=== PATIENT | male | born 1955 | race Caucasian/White ===

== ENCOUNTER 2021-09-30 08:59 | Emergency (ER) | payer OTHER, MEDICAID, SELFPAY ==
[2021-09-30] VITALS (16 sets, daily range): BP systolic 127–145; BP diastolic 60–78; PULSE 65–84; RESP 12–26; TEMP 36.9; O2SAT 89–100; BMI 31.4
--- NOTE | 2021-09-30 08:51 | DI.RAD.S_ITS ---
PROCEDURE: XR CHEST 2V INDICATIONS: shortness of breath TECHNIQUE: 2 views of the chest were acquired. COMPARISON: [facility], CR, XR SHOULDER 2+ VIEWS LEFT, 09/21/2020, 14:59. [facility], CR, XR SHOULDER 2+ VIEWS LEFT, 10/19/2020, 14:37. FINDINGS: Exam is somewhat limited given overlying upper arm on the lateral view. Surgical changes and devices: None. Overlying EKG wires. Lungs and pleura: Left basilar opacity with small-moderate pleural effusion. Mediastinum: Mediastinal contours are normal. Left heart border is obscured by opacity. No definite cardiomegaly. 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 Soft tissues appear unremarkable. IMPRESSION: Left basilar opacity small to moderate pleural effusion. This is concerning for pneumonia in the correct clinical setting. Additional etiologies not excluded. Recommend follow-up radiographs after appropriate treatment to ensure resolution. Chronic nonunion proximal left humeral fracture. This appears increased in displacement from prior exam. Dictated by: Javier Urbina D.O. on 09/30/2021 at 8:45 Approved by: Javier Urbina D.O. on 09/30/2021 at 8:49
[2021-09-30 09:10] LABS: COVID19 -Nasal RAPID Negative (Negative)
[2021-09-30 09:19] LABS: Add Manual Diff / Slide Review NO; Basophils Absolute Auto 0 /uL (0-100); Basophils Percent Auto 0.5 % (0-2); Eosinophils Absolute Auto 0 /uL (0-450); Eosinophils Percent Auto 0.3 % (2-4); Hematocrit 41.5 % (41-53); Hemoglobin 13.8 g/dL (13.5-17.5); Lymphocytes Absolute Auto 1100 /uL (1100-4500); Lymphocytes Percent Auto 14.5 % (25-40); Mean Corpuscular HGB Conc 33.2 % (30-36); Mean Corpuscular Hemoglobin 28.5 PG (26-34); Mean Corpuscular Volume 85.8 fL (80-100); Monocytes Absolute Auto 800 /uL (0-900); Monocytes Percent Auto 10.9 % (3-14); Neutrophils Absolute Auto 5400 /uL (1500-7000); Neutrophils Percent Auto 73.8 % (50-75); Platelet Count 145 X10^3/uL (150-400); Red Blood Cell Count 4.84 X10^6/uL (4.5-5.9); Red Cell Distribution Width 14.8 % (11.6-14.8); White Blood Cell Count 7.3 X10^3/uL (4.5-11.0)
[2021-09-30 09:31] LABS: Alanine Aminotransferase 39 IU/L (<50); Albumin 3.6 g/dL (3.5-5.0); Albumin Globulin Ratio 1.2 (1.0-2.8); Alkaline Phosphatase 93 U/L (38-126); Aspartate Aminotransferase 64 IU/L (17-59); BUN Creatinine Ratio 22.9 (6-22); Bilirubin Total 1.3 mg/dL (0.2-1.3); Blood Urea Nitrogen 11 mg/dL (9-20); Calcium 8.4 mg/dL (8.4-10.2); Carbon Dioxide 31 mmol/L (22-32); Estimated Glomerular Filt Rate > 60 mL/min (>60); Globulin 2.9 g/dL (1.7-4.1); Glucose 87 mg/dL (80-110); HEMOLYSIS < 15 (0-50); Lactate (Lactic Acid) 1.3 mmol/L (0.7-2.1); Potassium 4.2 mmol/L (3.4-5.1); Total Protein 6.5 g/dL (6.3-8.2)
[2021-09-30 09:38] LABS: Chloride 75 mmol/L (98-107); Sodium 112 mmol/L (137-145)
--- NOTE | 2021-09-30 10:18 | ED_ITS ---
HPI - SOB/Dyspnea General Chief Complaint: Shortness of Breath/Dyspnea Stated Complaint: sob Time Seen by Provider: 09/30/21 09:00 Source: patient and EMS Mode of arrival: EMS Limitations: no limitations History of Present Illness HPI Narrative: This chronically ill 65-year-old gentleman comes by EMS from home today because of shortness of breath and fatigue, insomnia and vomiting now for many weeks. He says for at least a month he has not been able to sleep more than a few minutes at a time. He says he is unable to move about very well because of breathlessness. He says he smokes still little bit but not very much. He says every time he tries to drink or eat anything he ends up vomiting. He says he harper s not had fever or vomiting. He does feel short of breath. He says he does have abdominal pain diffusely. He says his left arm always hurts. He is not aware of any swelling in his left arm or chest. Patient does report once a week drinking about a six-pack of beer and a 5th of vodka Related Data Home Medications Medication Instructions Recorded Confirmed amitriptyline 25 mg tablet 25 mg PO DAILY 09/30/21 09/30/21 atorvastatin 20 mg tablet 20 mg PO BEDTIME 09/30/21 09/30/21 gabapentin 100 mg capsule 100 mg PO TID 09/30/21 09/30/21 ibuprofen 800 mg tablet 800 mg PO TID PRN Pain (Scale 09/30/21 09/30/21 Score 1-3) lisinopril 20 mg tablet 20 mg PO DAILY 09/30/21 09/30/21 Review of Systems Review of Systems Narrative: Complete review of systems is negative other than as noted above. Patient History Medical History COPD (chronic obstructive pulmonary disease) HLD (hyperlipidemia) HTN (hypertension) Surgical History S/P arterial stent Family History Father Congestive heart failure Mother CVA (cerebral vascular accident) Social History Smoking Status: Current every day smoker alcohol intake: current (occasional) substance use type: marijuana (occasional) Smoking Status: Current every day smoker tobacco type: cigarettes alcohol intake frequency: a few times a week Substance Use Type: marijuana Exam Narrative Exam Narrative: GENERAL: Alert, cooperative and in no distress. He is chronically ill- appearing. He has fairly marked swelling of his left upper extremity as well as his left pectoralis area. There is some mottling of his hands and feet. He has deformity of his proximal left humerus as well. HEAD: Atraumatic. Normocephalic. EYES: Sclera are clear without icterus. Extraocular movements are full. ENT: No rhinorrhea. Oropharynx is moist. Mouth exam is benign. NECK: Supple. Full range of motion. CARDIOVASCULAR: Normal rate and rhythm without murmur gallop or rub. RESPIRATORY: Clear to auscultation. Breath sounds equal bilaterally. Coarse breath sounds throughout. Decreased breath sounds in the right base. GASTROINTESTINAL: Abdomen soft, mild diffuse tenderness, nondistended. EXTREMITIES: No edema, full range of motion. No obvious trauma. Marked edema of the left lower extremity. Left upper extremity is also edematous. BACK: Normal inspection, no CVA tenderness. NEURO: Nonfocal examination, normal speech SKIN: No rash or erythema of visible areas chronic discoloration of the left anterior soriano PSYCH: Normally oriented. Normal range of affect. Appropriate behavior Initial Vital Signs Initial Vital Signs: Vital Signs Temperature 98.4 F 09/30/21 08:43 Pulse Rate 76 09/30/21 08:43 Respiratory Rate 19 09/30/21 08:43 Blood Pressure 138/72 09/30/21 08:43 Pulse Oximetry 100 09/30/21 08:43 Oxygen Delivery Method 09/30/21 08:43 Oxygen Flow Rate 4 09/30/21 08:43 Course Course Course Narrative: Shortly after laboratory data was obtained many hours ago I immediately began infusing saline to try to help alleviate the hyponatremia. We did this gently so as to not exacerbate his obvious congestive failure. We discovered many abnormalities including congestive heart failure, severe hyponatremia and a new lung nodule that looks like a cancer. He also has anasarca and probably significant COPD exacerbation as well. In any case, I consulted with the hospitalist who kindly did a bedside consultation and we have been trying to get this gentleman placed in outside facility with the nephrology team. At this time which is 4:19 p.m., the patient says he would like to go home. I had a lengthy discussion with the patient telling him that he has a very severe acute medical condition that could deteriorate and ultimately result in his or severe disability in the coming hours or days. I also told him that the cancer diagnosis is certainly not proven but requires extensive further workup to decide whether not it is real and what treatments might be available. I explained to him at least 2 or 3 times that he is at extreme risk for if he chooses to go home against medical advice. He reiterates multiple times that he would like to just go home. Orders Ordered: ED Orders 09/30/21 08:40 COVID19 -Nasal RAPID/Pre-Proc Stat 09/30/21 08:51 XR chest 2V Stat EKG-12 Lead Stat Measure peak expiratory flow ONCE RT Consult Eval and Treat Now 09/30/21 09:10 Complete Blood Count AUTO DIFF Stat Comprehensive Metabolic Panel Stat Ethanol (ETOH) Stat Lactate (Lactic Acid) Stat Lipase Stat Prothrombin Time INR Stat TSH [Thyroid Stimulating Hormone] Stat Troponin I Stat 09/30/21 10:35 CT chest abd pel w con Stat US periph venous low extrem lt Stat US periph venous up extrem lt Stat 09/30/21 14:07 Sodium Urine Random Stat UA dip and micro [Urinalysis and Microscopic] Stat Discontinued Medications Sodium Chloride (Normal Saline 0.9%) 1,000 mls @ 1,000 mls/hr IV BOLUS ONE Stop: 09/30/21 11:39 Last Infusion: 09/30/21 12:14 Dose: 0 mls/hr Documented By: MARIA EUGENIA Admin: 09/30/21 11:12 Dose: 1,000 mls/hr Documented By: MARIA EUGENIA Consultations Consultation #1: Dr. Woo consults Vital Signs Vital signs: Vital Signs - 8 hr 09/30/21 08:43 09/30/21 11:09 09/30/21 11:30 Temperature 98.4 F Pulse Rate 76 76 74 Respiratory Rate 19 12 20 Blood Pressure 138/72 Pulse Oximetry 100 98 99 Oxygen Delivery Method Nasal Cannula Oxygen Flow Rate 4 09/30/21 12:00 09/30/21 12:30 09/30/21 13:00 Temperature Pulse Rate 66 65 80 Respiratory Rate 20 15 22 Blood Pressure Pulse Oximetry 97 97 94 Oxygen Delivery Method Oxygen Flow Rate 2 09/30/21 13:30 09/30/21 14:00 09/30/21 14:30 Temperature Pulse Rate 79 80 77 Respiratory Rate 19 19 20 Blood Pressure Pulse Oximetry 99 92 93 Oxygen Delivery Method Oxygen Flow Rate 2 2 09/30/21 14:46 09/30/21 14:46 Temperature Pulse Rate 77 Respiratory Rate 16 Blood Pressure 127/60 Pulse Oximetry 93 Oxygen Delivery Method Oxygen Flow Rate MDM - SOB/Dyspnea Lab Data Result diagrams: 09/30/21 09:10 09/30/21 09:10 Labs: Lab Results 09/30/21 09/30/21 09/30/21 Range/Units 08:40 09:10 09:10 WBC 7.3 (4.5-11.0) X10^3/uL RBC 4.84 (4.5-5.9) X10^6/uL Hgb 13.8 (13.5-17.5) g/dL Hct 41.5 (41-53) % MCV 85.8 (80-100) fL MCH 28.5 (26-34) PG MCHC 33.2 (30-36) % RDW 14.8 (11.6-14.8) % Plt Count 145 L (150-400) X10^3/uL Neut % (Auto) 73.8 (50-75) % Lymph % (Auto) 14.5 L (25-40) % [place] % (Auto) 10.9 (3-14) % Eos % (Auto) 0.3 L (2-4) % Baso % (Auto) 0.5 (0-2) % Neut # (Auto) 5400 (7481-7523) /uL Lymph # (Auto) 1100 (4319-2297) /uL [place] # (Auto) 800 (0-900) /uL Eos # (Auto) 0 (0-450) /uL Baso # (Auto) 0 (0-100) /uL PT (10.1-12.7) SECONDS INR (0.9-1.3) Sodium 112 L* (137-145) mmol/L Potassium 4.2 (3.4-5.1) mmol/L Chloride 75 L* (98-107) mmol/L Carbon Dioxide 31 (22-32) mmol/L BUN 11 (9-20) mg/dL Creatinine 0.48 L (0.66-1.25) mg/dL Estimated GFR > 60 (>60) mL/min BUN/Creatinine Ratio 22.9 H (6-22) Glucose 87 (80-110) mg/dL Lactate (0.7-2.1) mmol/L Calcium 8.4 (8.4-10.2) mg/dL Total Bilirubin 1.3 (0.2-1.3) mg/dL AST 64 H (17-59) IU/L ALT 39 (<50) IU/L Alkaline Phosphatase 93 (38-126) U/L Troponin I (0.01-0.034) ng/mL Total Protein 6.5 (6.3-8.2) g/dL Albumin 3.6 (3.5-5.0) g/dL Globulin 2.9 (1.7-4.1) g/dL Albumin/Globulin Ratio 1.2 (1.0-2.8) Lipase (23-300) U/L TSH (0.47-4.68) uIU/mL Urine Color Urine Appearance Urine pH (4.5-8.0) Ur Specific [place] (1.000-1.035) Urine Protein (Negative) Urine Glucose (UA) (Negative) g/dL Urine Ketones (NEGATIVE) Urine Occult Blood (Negative) Urine Nitrate (Negative) Urine Bilirubin (NEGATIVE) Urine Urobilinogen (0.2) E.U./dL Ur Leukocyte Esterase (NEGATIVE) Urine RBC (0-5/HPF) Urine WBC (0-5/HPF) Ur Squamous Epith Cells (0-5/HPF) Urine Bacteria (None) Ur Culture Indicated? Ur Random Sodium (30-90) mmol/L Ethyl Alcohol ( - 10) mg/dL SARS-CoV-2 (PCR) Negative (Negative) 09/30/21 09/30/21 09/30/21 Range/Units 09:10 09:10 09:10 WBC (4.5-11.0) X10^3/uL RBC (4.5-5.9) X10^6/uL Hgb (13.5-17.5) g/dL Hct (41-53) % MCV (80-100) fL MCH (26-34) PG MCHC (30-36) % RDW (11.6-14.8) % Plt Count (150-400) X10^3/uL Neut % (Auto) (50-75) % Lymph % (Auto) (25-40) % [place] % (Auto) (3-14) % Eos % (Auto) (2-4) % Baso % (Auto) (0-2) % Neut # (Auto) (5930-7236) /uL Lymph # (Auto) (6925-9654) /uL [place] # (Auto) (0-900) /uL Eos # (Auto) (0-450) /uL Baso # (Auto) (0-100) /uL PT 15.1 H (10.1-12.7) SECONDS INR 1.4 H (0.9-1.3) Sodium (137-145) mmol/L Potassium (3.4-5.1) mmol/L Chloride (98-107) mmol/L Carbon Dioxide (22-32) mmol/L BUN (9-20) mg/dL Creatinine (0.66-1.25) mg/dL Estimated GFR (>60) mL/min BUN/Creatinine Ratio (6-22) Glucose (80-110) mg/dL Lactate 1.3 (0.7-2.1) mmol/L Calcium (8.4-10.2) mg/dL Total Bilirubin (0.2-1.3) mg/dL AST (17-59) IU/L ALT (<50) IU/L Alkaline Phosphatase (38-126) U/L Troponin I 0.022 (0.01-0.034) ng/mL Total Protein (6.3-8.2) g/dL Albumin (3.5-5.0) g/dL Globulin (1.7-4.1) g/dL Albumin/Globulin Ratio (1.0-2.8) Lipase 68 (23-300) U/L TSH (0.47-4.68) uIU/mL Urine Color Urine Appearance Urine pH (4.5-8.0) Ur Specific [place] (1.000-1.035) Urine Protein (Negative) Urine Glucose (UA) (Negative) g/dL Urine Ketones (NEGATIVE) Urine Occult Blood (Negative) Urine Nitrate (Negative) Urine Bilirubin (NEGATIVE) Urine Urobilinogen (0.2) E.U./dL Ur Leukocyte Esterase (NEGATIVE) Urine RBC (0-5/HPF) Urine WBC (0-5/HPF) Ur Squamous Epith Cells (0-5/HPF) Urine Bacteria (None) Ur Culture Indicated? Ur Random Sodium (30-90) mmol/L Ethyl Alcohol < 10 ( - 10) mg/dL SARS-CoV-2 (PCR) (Negative) 09/30/21 09/30/21 09/30/21 Range/Units 09:10 14:07 14:07 WBC (4.5-11.0) X10^3/uL RBC (4.5-5.9) X10^6/uL Hgb (13.5-17.5) g/dL Hct (41-53) % MCV (80-100) fL MCH (26-34) PG MCHC (30-36) % RDW (11.6-14.8) % Plt Count (150-400) X10^3/uL Neut % (Auto) (50-75) % Lymph % (Auto) (25-40) % [place] % (Auto) (3-14) % Eos % (Auto) (2-4) % Baso % (Auto) (0-2) % Neut # (Auto) (2519-0187) /uL Lymph # (Auto) (5637-3988) /uL [place] # (Auto) (0-900) /uL Eos # (Auto) (0-450) /uL Baso # (Auto) (0-100) /uL PT (10.1-12.7) SECONDS INR (0.9-1.3) Sodium (137-145) mmol/L Potassium (3.4-5.1) mmol/L Chloride (98-107) mmol/L Carbon Dioxide (22-32) mmol/L BUN (9-20) mg/dL Creatinine (0.66-1.25) mg/dL Estimated GFR (>60) mL/min BUN/Creatinine Ratio (6-22) Glucose (80-110) mg/dL Lactate (0.7-2.1) mmol/L Calcium (8.4-10.2) mg/dL Total Bilirubin (0.2-1.3) mg/dL AST (17-59) IU/L ALT (<50) IU/L Alkaline Phosphatase (38-126) U/L Troponin I (0.01-0.034) ng/mL Total Protein (6.3-8.2) g/dL Albumin (3.5-5.0) g/dL Globulin (1.7-4.1) g/dL Albumin/Globulin Ratio (1.0-2.8) Lipase (23-300) U/L TSH 1.76 (0.47-4.68) uIU/mL Urine Color Yellow Urine Appearance Clear Urine pH 6.5 (4.5-8.0) Ur Specific [place] 1.020 (1.000-1.035) Urine Protein 2+ H (Negative) Urine Glucose (UA) Trace H (Negative) g/dL Urine Ketones 1+ H (NEGATIVE) Urine Occult Blood Trace-lysed (Negative) Urine Nitrate Negative (Negative) Urine Bilirubin Negative (NEGATIVE) Urine Urobilinogen 1.0 (0.2) E.U./dL Ur Leukocyte Esterase Negative (NEGATIVE) Urine RBC 0-1/hpf (0-5/HPF) Urine WBC 1-5/hpf (0-5/HPF) Ur Squamous Epith Cells 0-1 /hpf (0-5/HPF) Urine Bacteria None seen (None) Ur Culture Indicated? Cult not indicated Ur Random Sodium 7 L (30-90) mmol/L Ethyl Alcohol ( - 10) mg/dL SARS-CoV-2 (PCR) (Negative) Imaging Data Chest x-ray: Radiologist's Impression: IMPRESSION:? ? Left basilar opacity small to moderate pleural effusion.? This is concerning for pneumonia in the correct clinical setting.? Additional etiologies not excluded.? Recommend follow-up radiographs after appropriate treatment to ensure resolution. ? Chronic nonunion proximal left humeral fracture.? This appears increased in displacement from prior exam. ? ? Dictated by: Javier Urbina D.O. on 09/30/2021 at 8:45 ? ? Approved by: Javier Urbina D.O. on 09/30/2021 at 8:49 ? US - DVT: Radiologist's Impression: IMPRESSION:? ? No evidence of left lower extremity deep venous thrombosis. ? ? Dictated by: Javier Urbina D.O. on 09/30/2021 at 11:16 ? ? Approved by: Javier Urbina D.O. on 09/30/2021 at 11:17 ? CT scan - abdomen/pelvis: Radiologist's Impression: PROCEDURE:? CT CHEST ABD PEL W CON ? INDICATIONS:? Dyspnea, pleural effusion, abdominal pain, hyponatremia ? TECHNIQUE:? After the administration of intravenous contrast, 5 mm thick sections acquired from the lung apices to the symphysis.? 5 mm coronal and sagittal reformats were performed, with additional 7 mm MIP reformats through the lungs.? For radiation dose reduction, the following was used:? automated exposure control, adjustment of mA and/or kV according to patient size.? ? COMPARISON:? [facility], CR, XR SHOULDER 2+ VIEWS LEFT, 10/19/2020, 14:37.? [facility], CR, XR CHEST 2V, 09/30/2021, 9:02. ? FINDINGS:? Image quality:? Excellent.? ? CHEST:? Lungs and pleura:? Central tracheobronchial tree is patent.? Moderate emphysematous changes noted throughout the lungs.? There is a small left-sided pleural effusion with adjacent atelectasis.? Trace right pleural effusion.? More focal atelectasis noted within the lingula and left lung base.? There is a spiculated nodule noted within the anterolateral aspect of the left upper lobe measuring 1.7 x 1.1 by 1.2 centim eters (series 3, image 91) additional nodule just superiorly measuring 7 x 6 millimeters.? Ground-glass nodules adjacent to the minor fissure in the right middle lobe measuring 1.3 centimeters (3; 216 an additional nodule which may represent focal atelectasis measuring 1.3 x 0.8 centimeters (3; 225). ? Mediastinum:? Cardiomegaly with marked multi-vessel coronary vascular calcifications.? No pericardial effusion.? No pericardial effusion.? No mediastinal or hilar adenopathy by size criteria.? Enlargement of the ascending aorta measuring 4.6 centimeters at the level of the right pulmonary artery.? Esophagus is normal in caliber.? No hiatal hernia.? ? Chest wall:? No axillary or supraclavicular adenopathy by size criteria.? Thyroid gland is unremarkable.? ? ? ABDOMEN:? Solid organs:? Hypodensity within liver adjacent to the false form ligament measuring 2.5 x 1.7 centimeters (series 2, image 70).? Gallstone noted within the gallbladder neck.? No wall thickening or surrounding inflammation to suggest acute cholecystitis.? Biliary system is non dilated.? Pancreas enhances normally.? Spleen is normal in size and enhancement.? Right adrenal nodule measuring 1.5 centimeters and 15.9 Hounsfield units.? Kidneys demonstrate symmetric nephrograms.? There are vascular calcifications.? No hydronephrosis.? Ureters appear normal in course and caliber. ? Peritoneum and bowel:? Stomach and small bowel are unremarkable without evidence of obstruction.? There is diffuse diverticulosis without wall thickening to suggest acute diverticulitis.? Mild wall thickening versus pseudo wall thickening of the cecum and proximal ascending colon given non dilation.? The appendix is normal.? There is mild amount of ascites.? No pneumoperitoneum. ? Nodes and vessels:? No retroperitoneal or mesenteric adenopathy by size criteria.? Inferior vena cava is unremarkable.? There is diffuse calcified and noncalcified atherosclerosis of the aorta and branch vessels.? There is focal dilation of the infrarenal abdominal aorta measuring up to 2.8 centimeters.? There is dilation of the proximal left common iliac artery measuring 2.3 centimeters.? 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 Left external iliac stent is noted.? Diffuse calcifications noted throughout the proximal femoral artery on the right without definite internal flow.? 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 ? Miscellaneous:? No ventral hernias.? ? ? PELVIS:? Genitourinary:? Bladder wall thickness is normal.? ? Miscellaneous:? Bilateral fat containing inguinal hernias.? No adenopathy. ? Bones:? No suspicious bony lesions.? No vertebral body compression fractures.? Diffuse degenerative changes noted throughout the shoulders, spine, and hips.? Displaced fracture of the left proximal humerus with increased displacement from comparison radiographs. ? IMPRESSION:? ? Overall findings most consistent with heart failure given cardiomegaly, extensive coronary vascular calcifications, pleural effusions, and anasarca. ? ? Emphysematous findings with spiculated left lung nodule concerning for malignancy measuring 1.7 x 1.1 x 1.2 centimeters.? Recommend tissue sampling versus PET-CT for further evaluation.? Additional adjacent 7 millimeter nodule and additional ground-glass nodules within the right lung.? ? Hypodensity within the liver adjacent to the false form ligament measuring 2.5 x 1.7 centimeters.? Although this may represent focal fat given of additional findings, metastatic disease or other liver lesion not excluded.? Recommend dedicated liver MRI for further evaluation. ? Right adrenal indeterminate nodule measuring 1.5 centimeters.? Recommend attention on comparison liver MRI.? ? 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 ? Diffuse atherosclerosis with near complete occlusion of the right common iliac extending into the external and internal iliac arteries along with diffuse dense calcifications of the proximal right femoral artery without definite internal flow within the limits of this non dedicated study. ? Diffuse soft tissue anasarca with more focal skin thickening and edema noted within the left chest wall and flank which may represent a soft tissue infection.? Recommend clinical correlation. ? Cholelithiasis and diverticulosis.? ? ? Additional findings as above. ? Findings discussed with the ordering provider Dr. Malik Villarreal by Dr. Javier houston at approximately 1040 hours [place] Standard time on 09/30/2021.? ? Dictated by: Javier Urbina D.O. on 09/30/2021 at 10:23 ? ? Approved by: Javier Urbina D.O. on 09/30/2021 at 10:46 ? ECG Data Interpretation: ECG obtained at 9:17 a.m. on September 30 shows a ventricular rate of 66 and I believe he his atrial flutter. His QTC is 450. There is not appear to be any acute ST or T-wave changes. There is at least 2 premature ventricular contractions. [facility] Narrative Medical decision making narrative: Chronically ill 65-year-old gentleman arrives with symptoms lasting a month including repeated vomiting, shortness of breath, nausea and general weakness. Workup reveals multiple findings including anasarca, suspicious left upper lobe lung mass, findings consistent with congestive heart failure and severe COPD. Will admit for hyponatremia and anasarca and further workup. No evidence of DVT in the left upper or lower extremities on ultrasound Critical Care Time Critical Care Time Attestation: At least 45 minutes of critical care time spent with this patient. Time is spent evaluating the patient in taking history as well as ordering and interpre ting lab and x-ray results. I spoke with consultants about this patient as well. Ultimately the patient decided to leave Against Medical Advice which they think is extremely high risk and did take a lengthy initial discussion with him regarding his critical electrolyte disturbance and circulatory failure. Discharge Plan Departure Patient Disposition: Left Against Medical Advice Clinical Impression: Congestive heart failure, Acute hyponatremia, COPD (chronic obstructive pulmonary disease), Anasarca, Lung nodule Prescriptions: No Action atorvastatin 20 mg tablet 20 mg PO BEDTIME ibuprofen 800 mg tablet 800 mg PO TID PRN (Reason: Pain (Scale Score 1-3)) lisinopril 20 mg tablet 20 mg PO DAILY amitriptyline 25 mg tablet 25 mg PO DAILY gabapentin 100 mg capsule 100 mg PO TID Referrals: Brando Francis MD [Primary Care Provider] - Stand Alone Forms: Against Medical Advice
--- NOTE | 2021-09-30 10:35 | DI.CT.S_ITS ---
PROCEDURE: CT CHEST ABD PEL W CON INDICATIONS: Dyspnea, pleural effusion, abdominal pain, hyponatremia TECHNIQUE: After the administration of intravenous contrast, 5 mm thick sections acquired from the lung apices to the symphysis. 5 mm coronal and sagittal reformats were performed, with additional 7 mm MIP reformats through the lungs. For radiation dose reduction, the following was used: automated exposure control, adjustment of mA and/or kV according to patient size. COMPARISON: [facility], CR, XR SHOULDER 2+ VIEWS LEFT, 10/19/2020, 14:37. [facility], CR, XR CHEST 2V, 09/30/2021, 9:02. FINDINGS: Image quality: Excellent. CHEST: Lungs and pleura: Central tracheobronchial tree is patent. Moderate emphysematous changes noted throughout the lungs. There is a small left-sided pleural effusion with adjacent atelectasis. Trace right pleural effusion. More focal atelectasis noted within the lingula and left lung base. There is a spiculated nodule noted within the anterolateral aspect of the left upper lobe measuring 1.7 x 1.1 by 1.2 centimeters (series 3, image 91) additional nodule just superiorly measuring 7 x 6 millimeters. Ground-glass nodules adjacent to the minor fissure in the right middle lobe measuring 1.3 centimeters (3; 216 an additional nodule which may represent focal atelectasis measuring 1.3 x 0.8 centimeters (3; 225). Mediastinum: Cardiomegaly with marked multi-vessel coronary vascular calcifications. No pericardial effusion. No pericardial effusion. No mediastinal or hilar adenopathy by size criteria. Enlargement of the ascending aorta measuring 4.6 centimeters at the level of the right pulmonary artery. Esophagus is normal in caliber. No hiatal hernia. Chest wall: No axillary or supraclavicular adenopathy by size criteria. Thyroid gland is unremarkable. ABDOMEN: Solid organs: Hypodensity within liver adjacent to the false form ligament measuring 2.5 x 1.7 centimeters (series 2, image 70). Gallstone noted within the gallbladder neck. No wall thickening or surrounding inflammation to suggest acute cholecystitis. Biliary system is non dilated. Pancreas enhances normally. Spleen is normal in size and enhancement. Right adrenal nodule measuring 1.5 centimeters and 15.9 Hounsfield units. Kidneys demonstrate symmetric nephrograms. There are vascular calcifications. No hydronephrosis. Ureters appear normal in course and caliber. Peritoneum and bowel: Stomach and small bowel are unremarkable without evidence of obstruction. There is diffuse diverticulosis without wall thickening to suggest acute diverticulitis. Mild wall thickening versus pseudo wall thickening of the cecum and proximal ascending colon given non dilation. The appendix is normal. There is mild amount of ascites. No pneumoperitoneum. Nodes and vessels: No retroperitoneal or mesenteric adenopathy by size criteria. Inferior vena cava is unremarkable. There is diffuse calcified and noncalcified atherosclerosis of the aorta and branch vessels. There is focal dilation of the infrarenal abdominal aorta measuring up to 2.8 centimeters. There is dilation of the proximal left common iliac artery measuring 2.3 centimeters. 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 Left external iliac stent is noted. Diffuse calcifications noted throughout the proximal femoral artery on the right without definite internal flow. 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 Miscellaneous: No ventral hernias. PELVIS: Genitourinary: Bladder wall thickness is normal. Miscellaneous: Bilateral fat containing inguinal hernias. No adenopathy. Bones: No suspicious bony lesions. No vertebral body compression fractures. Diffuse degenerative changes noted throughout the shoulders, spine, and hips. Displaced fracture of the left proximal humerus with increased displacement from comparison radiographs. IMPRESSION: Overall findings most consistent with heart failure given cardiomegaly, extensive coronary vascular calcifications, pleural effusions, and anasarca. Emphysematous findings with spiculated left lung nodule concerning for malignancy measuring 1.7 x 1.1 x 1.2 centimeters. Recommend tissue sampling versus PET-CT for further evaluation. Additional adjacent 7 millimeter nodule and additional ground-glass nodules within the right lung. Hypodensity within the liver adjacent to the false form ligament measuring 2.5 x 1.7 centimeters. Although this may represent focal fat given of additional findings, metastatic disease or other liver lesion not excluded. Recommend dedicated liver MRI for further evaluation. Right adrenal indeterminate nodule measuring 1.5 centimeters. Recommend attention on comparison liver MRI. Multiple aneurysmal dilation is a of the aorta. 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 Diffuse atherosclerosis with near complete occlusion of the right common iliac extending into the external and internal iliac arteries along with diffuse dense calcifications of the proximal right femoral artery without definite internal flow within the limits of this non dedicated study. Diffuse soft tissue anasarca with more focal skin thickening and edema noted within the left chest wall and flank which may represent a soft tissue infection. Recommend clinical correlation. Cholelithiasis and diverticulosis. Additional findings as above. Findings discussed with the ordering provider Dr. Malik Villarreal by Dr. Javier Urbina at approximately 1040 hours [place] Standard time on 09/30/2021. Dictated by: Javier Urbina D.O. on 09/30/2021 at 10:23 Approved by: Javier Urbina D.O. on 09/30/2021 at 10:46
--- NOTE | 2021-09-30 10:35 | DI.US.S_ITS ---
PROCEDURE: US PERIPH VENOUS LOW EXTREM LT INDICATIONS: Marked edema rule out DVT TECHNIQUE: Real-time imaging, as well as color and pulse Doppler interrogation, were performed of the lower extremity deep veins from the inguinal ligament to the popliteal fossa. COMPARISON: None. FINDINGS: The common femoral, femoral and popliteal veins are normally compressible, and free of intraluminal thrombus. Color and pulse Doppler demonstrate normal phasic intraluminal flow. There is normal augmentation response to distal compression maneuver. Fluid collection within the popliteal fossa likely representing a small Barger's cyst measuring 2.6 x 1.4 x 0.3 centimeters. Mild soft tissue edema noted within the leg. IMPRESSION: No evidence of left lower extremity deep venous thrombosis. Dictated by: Javier Urbina D.O. on 09/30/2021 at 11:16 Approved by: Javier Urbina D.O. on 09/30/2021 at 11:17
--- NOTE | 2021-09-30 10:35 | DI.US.S_ITS ---
PROCEDURE: US PERIPH VENOUS UP EXTREM LT INDICATIONS: Marked edema, rule out DVT TECHNIQUE: Real-time imaging, as well as color and pulse Doppler interrogation, was performed of the left upper extremity deep veins from the inferior neck to the antecubital fossa. COMPARISON: None. FINDINGS: The internal jugular vein, visualized portions of the subclavian vein, axillary, and brachial veins are free of intraluminal thrombus. Where physically possible, the veins are normally compressible. Color and pulse Doppler demonstrate normal intraluminal flow, with expected phasicity and pulsatility. Additional scanning of the cephalic and basilic veins of the superficial system demonstrate normal compressibility, without thrombus. IMPRESSION: No evidence of left upper extremity deep venous thrombosis. Dictated by: Javier Urbina D.O. on 09/30/2021 at 11:18 Approved by: Javier Urbina D.O. on 09/30/2021 at 11:19
[2021-09-30 10:50] LABS: INR 1.4 (0.9-1.3); Prothrombin Time 15.1 SECONDS (10.1-12.7)
[2021-09-30 11:07] LABS: Ethanol (ETOH) < 10 mg/dL; Lipase 68 U/L (23-300)
[2021-09-30] MEDS: SODIUM CHLORIDE 0.9% 1,000 ML 1000 ML IV (11:12)
[2021-09-30 11:20] LABS: Troponin I 0.022 ng/mL (0.01-0.034)
[2021-09-30 11:39] LABS: Thyroid Stimulating Hormone 1.76 uIU/mL (0.47-4.68)
--- NOTE | 2021-09-30 14:04 | P.CONS_ITS ---
History of Present Illness Consult details Date Patient Seen: 09/30/21 Time Patient Seen: 14:04 Chief complaint: sob Reason for consult: hyponatremia Requesting provider: Malik Gomez Narrative: This is a 65 year old male with PMH of COPD, HTN, HLD, PAD w/ prior leg arterial ulcers, unknown progressive neuromuscular disorder per patient, who presented to the emergency room today with months to years of generalized malaise, shortness of breath, and diffuse joint pains. He states this is been worsening over quite some time, with and ability to walk without shortness of breath for the past month or 2, but was progressive prior to that. He has also had a poor appetite over the past couple of months but he does not know if he has had any weight gain or weight loss. He has a difficult time lying flat. Patient follows with Dr. Willard, in [place], whom the patient has seen as was told to stop smoking previously. He last saw his PCP about 4 months ago. He denies any worsened lower extremity edema recently, though this has been chronic for some time. He admits to seizure activity at home, multiple times over the past week, but did not seek medical attention. He complains of diffuse joint pains and mu scle aches. He complains frequent small voiding and a difficult time urinating but no dysuria. He denies any fevers or chills. In the emergency room, the patient was put on 4 L of oxygen initially but was never hypoxic. The remainder of his vital signs were unremarkable, and his GCS is 15. During my interview the patient was consistently in the low 90s on room air and appeared comfortable. Initial laboratory evaluation fairly unremarkable CBC with mild cytopenia with a platelet count of 145. Chemistries were notable for a sodium of 112, chloride of 75, creatinine of 0.48. AST was slightly elevated at 64, troponin was within normal limits at 0.022, and TSH was within normal limits at 1.76. Urinalysis and urine sodium level are pending. Alcohol level was undetectable. COVID-19 testing was negative. Chest x-ray shows cardiomegaly with a possible left basal infiltrate and a small to moderate pleural effusion. CT of his chest, abdomen, and pelvis was performed which showed multiple findings including emphysema with a spiculated left lung nodule with an adjacent nodule and ground glass nodules within the right lung. There is also a hypodensity in the liver, nodule, the multiple aneurysmal dilatations of the aorta, and anasarca is noted as well. He further had cholelithiasis and diverticulosis, with a stone in the gallbladder neck reported but no findings consistent with cholecystitis. The hospitalist service here was asked to evaluate for possible admission, however given this patient's current medical complexity he would benefit from a transfer to a center with additional specialty assistance including Cardiology, possibly pulmonology, and definitely Nephrology. Meds Home Medications and Allergies Home Medications Medication Instructions Recorded Confirmed Type amitriptyline 25 mg tablet 25 mg PO DAILY 09/30/21 09/30/21 History atorvastatin 20 mg tablet 20 mg PO BEDTIME 09/30/21 09/30/21 History gabapentin 100 mg capsule 100 mg PO TID 09/30/21 09/30/21 History ibuprofen 800 mg tablet 800 mg PO TID PRN Pain (Scale 09/30/21 09/30/21 History Score 1-3) lisinopril 20 mg tablet 20 mg PO DAILY 09/30/21 09/30/21 History Review of Systems Review of Systems Narrative: All other systems reviewed with the patient and are negative unless otherwise stated. Exam Vital Signs (past 8 hours): - 09/30/21 08:43 09/30/21 11:09 09/30/21 11:30 Temperature 98.4 F Pulse Rate 76 76 74 Respiratory Rate 19 12 20 Blood Pressure 138/72 Pulse Oximetry 100 98 99 Oxygen Delivery Method Nasal Cannula Oxygen Flow Rate 4 09/30/21 12:00 09/30/21 12:30 Temperature Pulse Rate 66 65 Respiratory Rate 20 15 Blood Pressure Pulse Oximetry 97 97 Oxygen Delivery Method Oxygen Flow Rate Oxygen Delivery Method Nasal Cannula Oxygen Flow Rate 4 Narrative Exam Narrative: General:? Patient is an ill-appearing male, but alert and oriented in no acute distress, he does appear quite fatigued and short of breath with only a few word sentences. HEENT:? Normocephalic, atraumatic, extraocular muscles intact, oral pharynx is clear and mucous membranes are moist. Neck: supple and symmetric, trachea is midline, no cervical adenopathy. Negative for JVD Chest:? Normal AP diameter and contour without kyphoscoliosis, no tachypnea, equal chest rise bilaterally. Lungs:?decreased breath sounds LLL, no wheezing, possible crackles LLL. Cardio:?RRR no m/r/g. Abdomen: S NT ND. Musculoskeletal:? Muscle strength and tone are equal within normal limits, no deformity. Extremities: bilateral upper and lower extremity edema, LLE slightly greater than RLE which is greater than his upper extremities. Skin:? Pale,? Warm to touch,dry and intact without rashes. There are chronic skin changes from prior reported leg wounds in his LLE. Neuro:? Alert and orientated x3, no gross deficits noted of cranial nerves. Psych:? Patient has a well-kept appearance, appropriate affect Objective ECG Impression: undetermined regular rhythm, suspect sinus but difficult to tell with artifact. 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 Labs Result Diagrams: 09/30/21 09:10 09/30/21 09:10 Labs: Laboratory Results - last 24 hr 09/30/21 09/30/21 09/30/21 08:40 09:10 09:10 WBC 7.3 RBC 4.84 Hgb 13.8 Hct 41.5 MCV 85.8 MCH 28.5 MCHC 33.2 RDW 14.8 Plt Count 145 L Neut % (Auto) 73.8 Lymph % (Auto) 14.5 L [place] % (Auto) 10.9 Eos % (Auto) 0.3 L Baso % (Auto) 0.5 Neut # (Auto) 5400 Lymph # (Auto) 1100 [place] # (Auto) 800 Eos # (Auto) 0 Baso # (Auto) 0 PT INR Sodium 112 L* Potassium 4.2 Chloride 75 L* Carbon Dioxide 31 BUN 11 Creatinine 0.48 L Estimated GFR > 60 BUN/Creatinine Ratio 22.9 H Glucose 87 Lactate Calcium 8.4 Total Bilirubin 1.3 AST 64 H ALT 39 Alkaline Phosphatase 93 Troponin I Total Protein 6.5 Albumin 3.6 Globulin 2.9 Albumin/Globulin Ratio 1.2 Lipase TSH Ethyl Alcohol SARS-CoV-2 (PCR) Negative 09/30/21 09/30/21 09/30/21 09:10 09:10 09:10 WBC RBC Hgb Hct MCV MCH MCHC RDW Plt Count Neut % (Auto) Lymph % (Auto) [place] % (Auto) Eos % (Auto) Baso % (Auto) Neut # (Auto) Lymph # (Auto) [place] # (Auto) Eos # (Auto) Baso # (Auto) PT 15.1 H INR 1.4 H Sodium Potassium Chloride Carbon Dioxide BUN Creatinine Estimated GFR BUN/Creatinine Ratio Glucose Lactate 1.3 Calcium Total Bilirubin AST ALT Alkaline Phosphatase Troponin I 0.022 Total Protein Albumin Globulin Albumin/Globulin Ratio Lipase 68 TSH Ethyl Alcohol < 10 SARS-CoV-2 (PCR) 09/30/21 09:10 WBC RBC Hgb Hct MCV MCH MCHC RDW Plt Count Neut % (Auto) Lymph % (Auto) [place] % (Auto) Eos % (Auto) Baso % (Auto) Neut # (Auto) Lymph # (Auto) [place] # (Auto) Eos # (Auto) Baso # (Auto) PT INR Sodium Potassium Chloride Carbon Dioxide BUN Creatinine Estimated GFR BUN/Creatinine Ratio Glucose Lactate Calcium Total Bilirubin AST ALT Alkaline Phosphatase Troponin I Total Protein Albumin Globulin Albumin/Globulin Ratio Lipase TSH 1.76 Ethyl Alcohol SARS-CoV-2 (PCR) [facility] Medical History COPD (chronic obstructive pulmonary disease) HLD (hyperlipidemia) HTN (hypertension) Surgical History S/P arterial stent Family History Father Congestive heart failure Mother CVA (cerebral vascular accident) Tobacco & Substance Use Smoking Status: Current every day smoker alcohol intake: current (occasional) substance use type: marijuana (occasional) Assessment & Plan Assessment & Plan narrative: 1. Severe hyponatremia - given likely chronic nature with recent seizure activity, and complex volume status (hypovolemic with low urine sodium, possibly SIADH component, and also on exam appears volume overloaded from probable heart failure) I recommend transfer to a center with multi-specialty assistance including cardiology and nephrology consultations to assist with management of this patient. -his urine sodium is low, continued IV fluids may result in pulmonary congestion and further respiratory failure, needing close monitoring. At this time recommend NS infusion at 75 cc per hour. Will need to adjust based on response with his sodium. - seizure precautions, CT / MRI recommended as noted below. - he needs at least q4 hour BMP, if not more frequent lab draws to avoid too rapid of a correction. Goal Na will be 120 at 24 hours. - he is very likely to also have an SIADH component to this hyponatremia given spiculated lung mass. - Urinalysis slightly concentrated with spec. gravity of 1.020, 2+ protein, trace glucose, 0-1 RBC, 1-5 WBC, no bacteria, not reflexed for culture. - would recommend bladder scan to rule out urinary obstruction which could further complicate given his BPH symptoms, though CT without hydronephrosis. 2. Suspected heart failure - given pleural effusion and chest xray appearance, likely has a congestive heart failure which would be a new diagnosis. - recommend pro-BNP to further evaluate, will need TTE as well. - would hold on diuresis at this time, but fluids to be continued with caution. 3. Spiculated lung mass - suspect malignancy given his smoking history. There are also multiple nodules, unclear if these represent metastasis at this time. - further inpatient or outpatient evaluation to be determined at outside facility - given reported seizure, may be related to malignancy or hyponatremia. would recommend CT head without contrast, MRI at outside facility. 4. Tobacco use - smokes approx. 1/3 ppd currently, using home rolled cigarettes. - counseled on cessation. Chronic conditions HTN Chronic pain HLD Progressive neurological disorder, unknown type. Dispo: recommend transfer to higher level facility with cardiology, nephrology consultation given severe hyponatremia in the setting of complex volume status. Code: Full, surrogate decision maker he did not wish to specify at this time. I have utilized all available immediate resources to obtain, update, or review the patient's current medications. COVID-19 COVID-19 status: Negative Time Spent With Patient Critical Care time: I spent a total of [] minutes of critical care time on this patient's care today; this time is exclusive of procedural time.
[2021-09-30 14:17] LABS: Appearance Urine UA CLEAR; Bilirubin Urine UA NEGATIVE (NEGATIVE); Color Urine UA YELLOW; Glucose Urine UA TRACE g/dL (Negative); Ketones Urine UA 1+ (NEGATIVE); Leukocyte Esterase Urine UA NEGATIVE (NEGATIVE); Nitrite Urine UA NEGATIVE (Negative); Occult Blood Urine UA TRACE-LYSED (Negative); Protein Urine UA 2+ (Negative); pH Urine UA 6.5 (4.5-8.0)
[2021-09-30 14:25] LABS: Bacteria Urine None Seen; Culture Indicated Urine Cult Not Indicated; RBC Urine 0-1/HPF (0-5/HPF); Squamous Epithelial Cell Urine 0-1 /HPF (0-5/HPF); WBC Urine 1-5/HPF (0-5/HPF)
[2021-09-30 14:27] LABS: Sodium Urine Random 7 mmol/L (30-90)
--- NOTE | 2021-09-30 16:19 | PC.NURSE ---
pt asking to leave AMA. Dr Gomez at bedside making decision himself to allow AMA of patient and Dr Gomez having patient sign AMA form. dc will be facilitated with BLS transport back home due to oxygen needs and generalized weakness.
== END 2021-09-30 17:33 | disposition left against medical advice (07) ==
PROVIDERS: Emergency Provider Family Medicine Addiction Medicine; PCP Internal Medicine
DX: I50.9 Heart failure, unspecified (principal); E87.1 Hypo-osmolality and hyponatremia; J44.9 Chronic obstructive pulmonary disease, unspecified; R60.1 Generalized edema; R91.1 Solitary pulmonary nodule; R10.9 Unspecified abdominal pain; Z20.822 Contact with and (suspected) exposure to COVID-19
CPT/HCPCS: 36415; 71046; 71260; 74177; 80053; 80320; 81001; 83605; 83690; 84300; 84443; 84484; 85025; 85610; 87635; 93005; 93010; 93971; 96360; 99284; 99291; C9803; Q9967

== ENCOUNTER → 2022-02-01 13:40 | Outpatient (CLI) | payer OTHER, MEDICAID, SELFPAY ==
--- NOTE | 2022-02-01 13:42 | DI.MRI.S_ITS ---
PROCEDURE: MR ABDOMEN WO/W CON INDICATIONS: Other specified diseases of liver TECHNIQUE: Coronal HASTE, axial 2D FLASH in- and [id number]; axial breath-hold T2 FSE. Dynamic axial VIBE during the administration of contrast; post-contrast coronal VIBE or 2D FLASH with fat saturation from the hepatic dome to the iliac crests. Optional diffusion weighted imaging and ADC may be performed. COMPARISON: [facility], CT, CT BIOPSY LUNG/MEDIASTINUM, 12/17/2021, 8:57. [facility], CT, CT CHEST ABD PEL W CON, 09/30/2021, 10:51. FINDINGS: Image quality: Suboptimal due to motion artifact. Lung bases: No basal pleural effusions. Elevation of the left hemidiaphragm. Liver: In hepatic segment 4 adjacent to the fissure for the ligamentum teres, there is subtle hypointensity/hypoenhancement on postcontrast images (for example series 12, image 51) corresponding to the area of hypodensity in this area on prior CT. The size of this finding is not significantly changed. No definite or obvious T2 signal abnormality in this region. evaluation of this area on in and out of phase sequences and DWI images is compromised due to motion artifact. No other potential suspicious liver lesion identified. Solid organs: Gallbladder is unremarkable. Biliary system is non dilated. Pancreas is normal in morphology. Spleen is normal in size and enhancement. No adrenal nodules. Both kidneys demonstrate normal size and enhancement, without hydronephrosis. Nodes and vessels: No retroperitoneal or mesenteric adenopathy by size criteria. Aorta and inferior vena cava are normal in size. Bowel and peritoneum: Visualized large and small bowel is non-dilated. No substantial free fluid. IMPRESSION: 1. Suboptimal examination due to motion artifact. 2. Similar size of the area of hypoenhancement within hepatic segment 4, adjacent to the fissure for the ligamentum teres. This finding is suspected to represent focal fatty infiltration but an underlying mass/lesion is difficult to fully exclude. Could consider future follow-up imaging to ensure stability, or PET-CT if clinically indicated. Dictated by: Caesar Abbott M.D. on 02/02/2022 at 10:21 Approved by: Caesar Abbott M.D. on 02/02/2022 at 10:57
== END ==
PROVIDERS: PCP Family Medicine; Referring Provider Family Medicine; Visit Provider Family Medicine
DX: K76.89 Other specified diseases of liver (principal)
CPT/HCPCS: 74183; A9579

== ENCOUNTER → 2024-03-11 13:41 | Outpatient (CLI) | payer OTHER, MEDICAID, SELFPAY | LOC: WC 13:46 | PROVIDERS: PCP Family Medicine; Visit Provider Surgery | DX: L97.322 Non-pressure chronic ulcer of left ankle with fat layer exposed (principal); L97.522 Non-pressure chronic ulcer of other part of left foot with fat layer exposed; I73.9 Peripheral vascular disease, unspecified; R23.4 Changes in skin texture; L84 Corns and callosities; L53.9 Erythematous condition, unspecified; I50.9 Heart failure, unspecified; F17.210 Nicotine dependence, cigarettes, uncomplicated | CPT/HCPCS: 11042; 87070; 87077; 87186; 87205; 99204; 99214 ==

== ENCOUNTER → 2024-03-18 13:40 | Outpatient (CLI) | payer OTHER, MEDICAID, SELFPAY | PROVIDERS: PCP Family Medicine; Visit Provider Surgery | DX: L97.522 Non-pressure chronic ulcer of other part of left foot with fat layer exposed (principal); L97.328 Non-pressure chronic ulcer of left ankle with other specified severity; L84 Corns and callosities; L08.9 Local infection of the skin and subcutaneous tissue, unspecified; R60.0 Localized edema; G62.9 Polyneuropathy, unspecified; I11.0 Hypertensive heart disease with heart failure; I50.22 Chronic systolic (congestive) heart failure; F17.210 Nicotine dependence, cigarettes, uncomplicated | CPT/HCPCS: 11042 ==

== ENCOUNTER → 2024-03-22 14:03 | Outpatient (CLI) | payer OTHER, MEDICAID, SELFPAY ==
--- NOTE | 2024-03-22 14:05 | DI.US.S_ITS ---
PROCEDURE: US ARTERIAL DUPLEX LE LT INDICATIONS: NON-HEALING ULCERS LLE TECHNIQUE: Color and pulse Doppler interrogation was performed of the left lower extremity arterial system, with image documentation. COMPARISON: [facility], , ARTERIAL LOW.EXTREM.BILATERAL, 10/03/2015, 13:40. FINDINGS: Common femoral artery: 207 cm/sec, with monophasic flow. Deep femoral artery: 198 cm/sec, with monophasic flow. Proximal superficial femoral artery: 145 cm/sec, with monophasic flow. Mid superficial femoral artery: 61 cm/sec, with monophasic flow. Distal superficial femoral artery: 41 cm/sec, with monophasic flow. Popliteal artery: 39 cm/sec, with monophasic flow. Posterior tibial artery: 25 cm/sec, with monophasic flow. Anterior tibial artery/dorsalis pedis: 19 cm/sec, with monophasic flow. Flanagan-scale imaging description: Moderate to severe calcified and noncalcified plaque throughout the left lower extremity arterial system. Heavily calcified plaque throughout the mid left SFA effacing the lumen at this level. IMPRESSION: 1. Dampened waveforms throughout the left lower extremity arterial system suggestive of severe aortoiliac inflow disease. Correlation with CT angiogram or MR angiogram is recommended. 2. Heavily calcified plaque throughout the mid left SFA effacing the lumen at this level with dampened waveform distally suggestive of mid left SFA occlusion. This has progressed compared to previous study. Dictated by: Harsha Barroso M.D. on 03/22/2024 at 15:37 Approved by: Harsha Barroso M.D. on 03/22/2024 at 15:41
--- NOTE | 2024-03-22 14:45 | DI.RAD.S_ITS ---
PROCEDURE: XR FOOT LT MIN 3V INDICATIONS: ulcers of lateral foot, posterior ankle TECHNIQUE: 3 views of the foot were acquired. COMPARISON: None. FINDINGS: Bones: No fractures or dislocations. No suspicious bony lesions. Hammertoe deformities the 2nd through 5th digits. Soft tissues: No tibiotalar joint effusion. Achilles tendon appears normal. Soft tissue ulcer along the lateral aspect of the 5th metatarsal base. IMPRESSION: Soft tissue ulcer along the lateral aspect of the 5th metatarsal base, without underlying bony anomaly to suggest osteomyelitis at this time. Dictated by: Cuong Saldana M.D. on 03/22/2024 at 15:45 Approved by: Cuong Saldana M.D. on 03/22/2024 at 15:46
== END ==
LOC: US 14:05
PROVIDERS: PCP Family Medicine; Referring Provider Surgery; Visit Provider Surgery
DX: I73.9 Peripheral vascular disease, unspecified (principal); L97.322 Non-pressure chronic ulcer of left ankle with fat layer exposed; L97.522 Non-pressure chronic ulcer of other part of left foot with fat layer exposed; M20.42 Other hammer toe(s) (acquired), left foot
CPT/HCPCS: 73630; 93926

== ENCOUNTER → 2024-04-08 14:05 | Outpatient (CLI) | payer OTHER, MEDICAID, SELFPAY | LOC: WC 14:07 | PROVIDERS: PCP Family Medicine; Visit Provider Surgery | DX: I73.9 Peripheral vascular disease, unspecified (principal); L97.522 Non-pressure chronic ulcer of other part of left foot with fat layer exposed; L97.322 Non-pressure chronic ulcer of left ankle with fat layer exposed; G57.83 Other specified mononeuropathies of bilateral lower limbs; L84 Corns and callosities; L53.8 Other specified erythematous conditions; R60.0 Localized edema | CPT/HCPCS: 11042; 99213 ==

== ENCOUNTER → 2024-04-15 13:36 | Outpatient (CLI) | payer OTHER, MEDICAID, SELFPAY | LOC: WC 13:38 | PROVIDERS: PCP Family Medicine; Visit Provider Surgery | DX: L97.322 Non-pressure chronic ulcer of left ankle with fat layer exposed (principal); L97.522 Non-pressure chronic ulcer of other part of left foot with fat layer exposed; I73.9 Peripheral vascular disease, unspecified; L84 Corns and callosities; L53.9 Erythematous condition, unspecified; R60.0 Localized edema; F17.210 Nicotine dependence, cigarettes, uncomplicated | CPT/HCPCS: 11042 ==

== ENCOUNTER → 2024-04-22 13:35 | Outpatient (CLI) | payer OTHER, MEDICAID, SELFPAY | PROVIDERS: PCP Family Medicine; Visit Provider Surgery | DX: I73.9 Peripheral vascular disease, unspecified (principal); L97.522 Non-pressure chronic ulcer of other part of left foot with fat layer exposed; L97.322 Non-pressure chronic ulcer of left ankle with fat layer exposed; G57.83 Other specified mononeuropathies of bilateral lower limbs | CPT/HCPCS: 11042 ==

== ENCOUNTER → 2024-05-28 12:49 | Outpatient (CLI) | payer OTHER, MEDICAID, SELFPAY | LOC: WC 12:51 | PROVIDERS: PCP Family Medicine; Referring Provider Family Medicine; Visit Provider Physician Assistant | DX: I70.245 Atherosclerosis of native arteries of left leg with ulceration of other part of foot (principal); I70.248 Atherosclerosis of native arteries of left leg with ulceration of other part of lower leg; L97.522 Non-pressure chronic ulcer of other part of left foot with fat layer exposed; L97.322 Non-pressure chronic ulcer of left ankle with fat layer exposed | CPT/HCPCS: 11042; 11045; 87070; 87075; 87077; 87186; 87205; 99213; 99214 ==

== ENCOUNTER → 2024-06-04 14:05 | Outpatient (CLI) | payer OTHER, MEDICAID, SELFPAY ==
--- NOTE | 2024-06-04 | OV.WND_ITS ---
PROGRESS NOTE DETAILS PATIENT NAME: JAMISON DIXON PATIENT NUMBER: [id number] CLINICIAN: OLEG ANN R.N. PATIENT DATE OF : 1955 PHYSICIAN / CAUSTIC ROOM OPERATOR: ERASMO CHAN PA-C PATIENT SUBJECTIVE CHIEF COMPLAINT THIS INFORMATION WAS OBTAINED FROM THE PATIENT. WOUNDS ON MY FOOT. GENERAL NOTES ARTERIAL ULCERS OF LEFT ANKLE AND FOOT. ALLERGIES LIPITOR (SEVERITY: MODERATE, REACTION: RASH/HIVES), CODEINE (SEVERITY: MODERATE, REACTION: STOMACH ACHE), TRAZODONE (SEVERITY: MODERATE, REACTION: HIVES ), ALLERGENIC EXTRACTS, NON-POLLENS (SEVERITY: MODERATE, REACTION: SNEEZING) HPI THIS INFORMATION WAS OBTAINED FROM THE PATIENT. LOCATION: L FOOT, L ANKLE DURATION: 12/26/23, 02/25/24 CONTEXT: ARTERIAL THE PATIENT IS A 68-YEAR-OLD MALE WITH LUNG CANCER, TOBACCO ABUSE, CHRONIC CONGESTIVE HEART FAILURE, PAD, COPD, AND NEUROPATHY WHO RETURNS TODAY FOR FOLLOW UP OF ARTERIAL ULCER LATERAL LEFT FOOT AND POSTERIOR LEFT ANKLE. THE PATIENT'S WOUNDS HAVE BEEN PRESENT SINCE DECEMBER 2023 AND FEBRUARY AND HE WAS LOST TO FOLLOW UP DUE TO HAVING OTHER MEDICAL ISSUES. HE DENIES ANY FEVER OR CHILLS AND REPORTS SOME IMPROVEMENT IN PREVIOUS COUGH. THE PATIENT HAS PREVIOUSLY BEEN SEEN AT THE WOUND CENTER SEVERAL YEARS AGO FOR ARTERIAL ULCERS OF THE LEFT LOWER EXTREMITY THAT HEALED AFTER HE UNDERWENT ENDARTERECTOMY AND STENT PLACEMENT IN 2017. THE PATIENT HAS AN APPOINTMENT WITH V[facility]ULAR ON 06/16/24. THE PATIENT IS A CURRENT EVERY DAY CIGARETTE SMOKER. HE IS ABLE TO AMBULATE IN HIS HOUSE BUT USES A MOTORIZED WHEELCHAIR FOR MOBILITY WHENEVER HE LEAVES HIS HOME. THE PATIENT REPORTS THAT HIS LUNG CANCER HAS BEEN IN REMISSION SINCE RECEIVING RADIATION THERAPY. THE PATIENT WAS RECENTLY SEEN BY CARDIOLOGY AND SOME OF HIS MEDICATIONS WERE ADJUSTED. HE IS CURRENTLY ON LEVOFLOXACIN. THE PATIENT MISSED HIS FOLLOW UP WITH HOME HEALTH AND HE MISSED HIS LAST DRESSING CHANGE. ON EXAM TODAY BOTH ULCERS ARE STALLED AND HIS FOOT IS COOL TO TOUCH. HE IS ABLE TO MOVE HIS TOES AND SENSATION IS INTACT. LABS: 05/28/24: CULTURE PSEUDOMONAS AERUGINOSA, RX LEVOFLOXACIN X 10 DAYS 03/22/24: X-RAY LEFT FOOT:SOFT TISSUE ULCER ALONG THE LATERAL ASPECT OF THE 5TH METATARSAL BASE WITHOUT UNDERLYING BONY ANOMALY TO SUGGEST OSTEOMYELITIS AT THIS TIME. 03/22/24: ARTERIAL DOPPLER: DAMPENED WAVEFORMS THROUGHOUT THE LEFT LOWER EXTREMITY ARTERIAL SYSTEM SUGGESTIVE OF SEVERE AORTOILIAC INFLOW DISEASE. CORRELATION WITH CT ANGIOGRAM OR MR ANGIOGRAM IS RECOMMENDED. HEAVILY CALCIFIED PLAQUE THROUGHOUT THE MID LEFT SFA EFFACING THE LUMEN AT THIS LEVEL WITH DAMPENED WAVEFORM DISTALLY SUGGESTIVE OF MID LEFT SFA OCCLUSION. THIS HAS PROGRESSED COMPARED TO PREVIOUS STUDY. JAMISON DIXON [id number] 1955 03/11/24: CULTURE GREW COAG-NEGATIVE STAPHYLOCOCCUS AND PSEUDOMONAS AERUGINOSA 03/02/24: ELECTROLYTES UNREMARKABLE EXCEPT FOR ELEVATED C/O TO, GFR IS 74, LFTS NORMAL, BNP 929, WBC 6.5, HEMOGLOBIN 15.2, HCT 50.3 OBJECTIVE VITALS HEIGHT/LENGTH: 75 IN (190.5 CM), WEIGHT: 248.01 LBS (112.73 KGS), BMI: 31, TEMPERATURE: 97.3 ?F (36.28 ?C), PULSE: 112 BPM, RESPIRATORY RATE: 20 BREATHS/MIN, BLOOD PRESSURE: 130/85 MMHG. GENERAL NOTES UNABLE TO GET SPO2 READING. PA MADE AWARE. LOWER EXTREMITY ASSESSMENT EDEMA ASSESSMENT: LEFT EXTREMITY: EDEMA IS PRESENT COMPRESSION DEVICE IN USE: NO CALF MEASUREMENT 40 CM FROM HEEL WITH LEFT MEASUREMENT OF 42 CM ANKLE MEASUREMENT 5 CM FROM MALLEOLUS WITH LEFT MEASUREMENT OF 26.3 CM FOOT MEASUREMENT 16 CM FROM HEEL WITH LEFT MEASUREMENT OF 28 CM VASCULAR ASSESSMENT LEFT EXTREMITY PULSES: POSTERIOR: DOPPLER DORSALIS PEDIS: ABSENT LEFT EXTREMITY COLORS, HAIR GROWTH, AND CONDITIONS: EXTREMITY COLOR: MOTTLED HAIR GROWTH ON EXTREMITY: NO TEMPERATURE OF EXTREMITY: COOL CAPILARY REFILL: > 3 SECONDS ERYTHEMA: YES HYPERPIGMENTATION: YES LIPODERMATOSCLEROSIS: NO OFF-LOADING: LEFT OFF-LOADING DEVICE IN USE: YES DEVICE USED CORRECTLY: YES OFF-LOADNG DEVICE USED: YES GENERAL NOTES PT REPORTS STENTS PLUGGED UP AFTER LAST SURGERY. VASCULAR FOLLOW-UP 06/16. MONOPHASIC POSTERIOR TIBIAL. WOUND ASSESSMENT(S) WOUND #14 LEFT FOOT IS A CHRONIC FULL THICKNESS ARTERIAL ULCER ACQUIRED ON 03/11/2024 AND HAS RECEIVED A STATUS OF NOT HEALED. INITIAL WOUND ENCOUNTER MEASUREMENTS ARE 2.5CM LENGTH X 8.2CM WIDTH X 0.3 CM DEPTH, WITH AN AREA OF 20.5 SQ CM AND A VOLUME OF 6.15 CUBIC CM.INITIAL WOUND ENCOUNTER PREVIOUS MEASUREMENTS FROM 05/28/2024 ARE 4.5CM LENGTH X 9CM WIDTH X 0.3CM DEPTH, WITH AN AREA OF 40.5 SQ CM AND A VOLUME OF 12.15 CUBIC CM. ADIPOSE IS EXPOSED. NO TUNNELING HAS BEEN NOTED. NO SINUS TRACT HAS BEEN NOTED. NO UNDERMINING HAS BEEN NOTED. THERE IS A MODERATE AMOUNT OF SEROUS DRAINAGE NOTED WHICH HAS A MILD ODOR. THE PATIENT REPORTS A WOUND PAIN OF LEVEL 8/10. THE WOUND MARGIN IS UNATTACHED WOUND BED HAS YES, PINK, FIRM, GRANULATION, YES SLOUGH, NO ESCHAR, NO EPITHELIALIZATION. THE PERIWOUND SKIN EXHIBITED EDEMA, MACERATION AND ERYTHEMA. THE PERIWOUND SKIN DID NOT EXHIBIT BRAWNY INDURATION, EXCORIATION, INDURATION, CALLUS, CREPITUS, FLUCTUANCE, RASH, ATROPHIE YASMIN, CYANOSIS, ECCHYMOSIS, HEMOSIDEROSIS, PALLOR AND RUBOR. THE PERIWOUND SKIN WAS MOIST. THE PERIWOUND SKIN WAS NOT FRIABLE AND DRY/SCALY. THE TEMPERATURE OF THE PERIWOUND SKIN IS WNL. PERIWOUND SKIN PRESENTS WITH S/S OF INFECTION. CONFIRMATION DESCRIPTION AND TREATMENT PLAN IS: SIGNS AND SYMPTOMS PRESENT, SYSTEMIC ANTIBIOTICS PRESCRIBED. JAMISON DIXON [id number] 1955 GENERAL NOTES MEASURED AT AN ANGLE. ADDITIONAL INFORMATION OTHER DEVITALIZED TISSUE PRESENT: BIOFILM WOUND #15 LEFT, POSTERIOR ANKLE IS A CHRONIC FULL THICKNESS ARTERIAL ULCER ACQUIRED ON 03/11/2024 AND HAS RECEIVED A STATUS OF NOT HEALED. INITIAL WOUND ENCOUNTER MEASUREMENTS ARE 1.8CM LENGTH X 1.3CM WIDTH X 0.3 CM DEPTH, WITH AN AREA OF 2.34 SQ CM AND A VOLUME OF 0.702 CUBIC CM.INITIAL WOUND ENCOUNTER PREVIOUS MEASUREMENTS FROM 05/28/2024 ARE 1CM LENGTH X 1.1CM WIDTH X 0.2CM DEPTH, WITH AN AREA OF 1.1 SQ CM AND A VOLUME OF 0.22 CUBIC CM. ADIPOSE IS EXPOSED. NO TUNNELING HAS BEEN NOTED. NO SINUS TRACT HAS BEEN NOTED. NO UNDERMINING HAS BEEN NOTED. THERE IS A SMALL AMOUNT OF PURULENT DRAINAGE NOTED WHICH HAS NO ODOR. THE PATIENT REPORTS A WOUND PAIN OF LEVEL 8/10. THE WOUND MARGIN IS UNATTACHED WOUND BED HAS NO, GRANULATION, YES SLOUGH, NO ESCHAR, NO EPITHELIALIZATION. THE PERIWOUND SKIN EXHIBITED HEMOSIDEROSIS. THE PERIWOUND SKIN DID NOT EXHIBIT BRAWNY INDURATION, EDEMA, EXCORIATION, INDURATION, CALLUS, CREPITUS, FLUCTUANCE, RASH, MACERATION, ATROPHIE YASMIN, CYANOSIS, ECCHYMOSIS, ERYTHEMA, PALLOR AND RUBOR. THE PERIWOUND SKIN WAS MOIST. THE PERIWOUND SKIN WAS NOT FRIABLE AND DRY/SCALY. THE TEMPERATURE OF THE PERIWOUND SKIN IS WNL. PERIWOUND SKIN PRESENTS WITH S/S OF INFECTION. CONFIRMATION DESCRIPTION AND TREATMENT PLAN IS: SIGNS AND SYMPTOMS PRESENT, SYSTEMIC ANTIBIOTICS PRESCRIBED. ADDITIONAL INFORMATION OTHER DEVITALIZED TISSUE PRESENT: BIOFILM PROCEDURES WOUND #14 WOUND #14 (ARTERIAL ULCER) IS LOCATED ON THE LEFT FOOT. A SELECTIVE DEBRIDEMENT WITH A TOTAL AREA DEBRIDED OF 20.5 SQ CM. WAS PERFORMED BY ERASMO CHAN PA-C. TO REMOVE DEVITALIZED TISSUE: BIOFILM, EXUDATE AND SLOUGH. THE FOLLOWING INSTRUMENT(S) WERE USED: CURETTE. PAIN CONTROL WAS ACHIEVED USING EMLA LIDOCAINE/PRILOCAINE 2.5%/2.5%. A TIME OUT WAS CONDUCTED PRIOR TO THE START OF THE PROCEDURE. A MINIMAL AMOUNT OF BLEEDING WAS CONTROLLED WITH PRESSURE. THE PROCEDURE WAS TOLERATED WELL WITH A PAIN LEVEL OF 0 THROUGHOUT AND A PAIN LEVEL OF 0 FOLLOWING THE PROCEDURE. POST DEBRIDEMENT MEASUREMENTS: 2.5CM LENGTH X 8.2CM WIDTH X 0.3CM DEPTH; WITH AN AREA OF 20.5 SQ CM AND A VOLUME OF 6.15 CUBIC CM. WOUND #15 WOUND #15 (ARTERIAL ULCER) IS LOCATED ON THE LEFT, POSTERIOR ANKLE. A SELECTIVE DEBRIDEMENT WITH A TOTAL AREA DEBRIDED OF 2.34 SQ CM. WAS PERFORMED BY ERASMO CHAN PA-C. TO REMOVE DEVITALIZED TISSUE: BIOFILM, EXUDATE AND SLOUGH. THE FOLLOWING INSTRUMENT(S) WERE USED: CURETTE. PAIN CONTROL WAS ACHIEVED USING EMLA LIDOCAINE/PRILOCAINE 2.5%/2.5%. A TIME OUT WAS CONDUCTED PRIOR TO THE START OF THE PROCEDURE. A MINIMAL AMOUNT OF BLEEDING WAS CONTROLLED WITH PRESSURE. THE PROCEDURE WAS TOLERATED WELL WITH A PAIN LEVEL OF 0 THROUGHOUT AND A PAIN LEVEL OF 0 FOLLOWING THE PROCEDURE. POST DEBRIDEMENT MEASUREMENTS: 1.8CM LENGTH X 1.3CM WIDTH X 0.3CM DEPTH; WITH AN AREA OF 2.34 SQ CM AND A VOLUME OF 0.702 CUBIC CM. PLAN WOUND ORDERS: WOUND #14 LEFT FOOT HAND HYGIENE JAMISON DIXON [id number] 1955 HAND HYGIENE - WASH HANDS BEFORE AND AFTER WOUND CARE. CALL THE WOUND CENTER AT [phone] IF YOU HAVE SIGNS OR SYMPTOMS OF INFECTION, FEVER CHILLS OR SHAKES, INCREASED DRAINAGE, INCREASED ODOR OR UNUSUAL REDNESS. AFTER WOUND CENTER HOURS PLEASE NOTIFY YOUR PCP OR GO TO THE EMERGENCY ROOM. CLEANSER CLEANSE WOUND WITH NORMAL SALINE MAY SHOWER, LEAVE WOUND DRESSING INTACT. COVER WOUND DRESSING WITH A WATERPROOF BARRIER. KEEP DRESSING DRY. NO BATHS PLEASE. PROCEDURE / ANESTHETIC 5% TOPICAL LIDOCAINE TO WOUND BED PRIOR TO PROCEDURE, IN CLINIC ONLY. TOPICAL TREATMENTS OTHER ORDER: - IODOSORB CREAM APPLIED TO WOUND BED. DRESSING ORDERS APPLY DRESSING(S) AND SECURE WITH: - BORDERED SILICONE FOAM. DRESSING CHANGE FREQUENCY CHANGE DRESSING EVERY OTHER DAY. CHANGE DRESSING IF IT BECOMES SOILED OR WET. WOUND #15 LEFT, POSTERIOR ANKLE HAND HYGIENE HAND HYGIENE - WASH HANDS BEFORE AND AFTER WOUND CARE. CALL THE WOUND CENTER AT [phone] IF YOU HAVE SIGNS OR SYMPTOMS OF INFECTION, FEVER CHILLS OR SHAKES, INCREASED DRAINAGE, INCREASED ODOR OR UNUSUAL REDNESS. AFTER WOUND CENTER HOURS PLEASE NOTIFY YOUR PCP OR GO TO THE EMERGENCY ROOM. CLEANSER CLEANSE WOUND WITH NORMAL SALINE MAY SHOWER, LEAVE WOUND DRESSING INTACT. COVER WOUND DRESSING WITH A WATERPROOF BARRIER. KEEP DRESSING DRY. NO BATHS PLEASE. PROCEDURE / ANESTHETIC 5% TOPICAL LIDOCAINE TO WOUND BED PRIOR TO PROCEDURE, IN CLINIC ONLY. TOPICAL TREATMENTS OTHER ORDER: - IODOSORB CREAM APPLIED TO WOUND BED. DRESSING ORDERS APPLY DRESSING(S) AND SECURE WITH: - BORDERED SILICONE FOAM. DRESSING CHANGE FREQUENCY CHANGE DRESSING EVERY OTHER DAY. CHANGE DRESSING IF IT BECOMES SOILED OR WET. ADDITIONAL ORDERS: OFF-LOADING / PRESSURE RELIEF OTHER ORDER: - AVOID LYING ON YOUR LEFT SIDE TO PREVENT PRESSURE AGAINST LEFT FOOT ULCER. WHEN IN YOUR RECLINING CHAIR, MAKE SURE THAT YOU ARE NOT RESTING DIRECTLY ON THE ULCER ON THE BACK OF YOUR LEG. DIETARY TAKE VITAMIN C 1000MG BY MOUTH DAILY. TAKE ZINC 25MG BY MOUTH DAILY. INCREASE THE PROTEIN IN YOUR DIET. - PROTEIN SHAKES IN BETWEEN MEALS (CONSUME 20 - 30 GRAM PROTEIN SHAKES PER DAY). HOME HEALTH ADMIT TO HOME HEALTH FOR PENITENTIARY. - [facility]: REQUESTING SERVICES FOR PATIENT. COMING TO CLINIC FOR APPOINTMENTS IS TAXING AND REQUIRES HIGH LEVEL OF ASSISTANCE. HOME HEALTH CARE: IF YOU HAVE ANY QUESTIONS OR CONCERNS PLEASE CONTACT THE WOUND CENTER. - [facility] HE[facility]: WE WOULD LIKE DRESSING CHANGES ON MONDAYS AN WEDNESDAYS, PT TO RETURN TO CLINIC ON FRIDAYS. THANK YOU. FOLLOW-UP APPOINTMENTS RETURN APPOINTMENT 1 WEEK OTHER ORDERS: - PLEASE GO TO THE ER THIS WEEKEND IF YOU HAVE WORSENING SYMPTOMS OF SHORTNESS OF BREATH, REDNESS OR PAIN IN FOOT. PLEASE ATTEND FOLLOW-UP APPOINTMENT ON 06/16/24 AT 2PM WITH [facility]: SCRIBING ATTESTATION I ATTEST, THE NURSE, THAT I SCRIBED THESE ORDERS FOR THE WOUND CARE PROVIDER. PROVIDER REVIEW AND ATTESTATION: REVIEWED AND EVALUATED LABS. JAMISON DIXON [id number] 1955 REVIEWED HOSPITAL RECORDS. DISCUSSED THE PLAN OF CARE @ BEDSIDE WITH - THE PATIENT SMOKING CESSATION WAS ENCOURAGED. I AGREE AND ATTEST TO THE ABOVE INFORMATION PROVIDED FROM OTHER LICENSED PROFESSIONALS. PLAN OF CARE: 01. ENSURE/ESTABLISH OPTIMAL BLOOD FLOW : - COMPLETE LOWER EXTREMITY ASSESSMENT STATUS: COMPLETED DATE: 06/04/2024 02. ASSESS FOR/TREAT INFECTION : - EVALUATE FOR SIGNS AND SYMPTOMS OF INFECTION AND DOCUMENT FINDINGS. STATUS: CONTINUED DATE: 06/04/2024 - OBTAIN CULTURE AND SENSITIVITY (CANDS) OR TISSUE CULTURE WHEN INFECTION IS SUSPECTED. (NOTE:) CONSIDER REPEATING WHEN WOUND HEALING <40% AFTER 30 DAYS OF WOUND CARE. STATUS: CONTINUED DATE: 06/04/2024 03. DEBRIDE WEEKLY OR MORE OFTEN PRN : - EVALUATE PATIENT IN CENTER WEEKLY TO ASSESS WOUND BED AND MARGINS FOR NEED FOR DEBRIDEMENT. STATUS: CONTINUED DATE: 06/04/2024 04. OPTIMIZE GLUCOSE CONTROL AND NUTRITION : - ORDER/REVIEW PERTINENT LABS TO EVALUATE RENAL FUNCTION, GLUCOSE CONTROL, AND NUTRITIONAL STATUS. STATUS: CONTINUED DATE: 06/04/2024 - COMPLETE A NUTRITION RISK ASSESSMENT. STATUS: COMPLETED DATE: 05/28/2024 05. OFFLOADING PLAN : - ADVISE PATIENT TO OFFLOAD THE FOOT ULCER. (I.E. HALF SHOE, SURGICAL SHOE, INSERT, CUSTOM SHOE, FELT AND FOAM, CAM WALKER, MULTIPODUS SPLINT, TOTAL CONTACT CAST, BI-VALVE CAST, POSTERIOR SPLINT). STATUS: CONTINUED DATE: 06/04/2024 - ORDER/REVIEW RADIOLOGY TESTS FOR SUSPECTED INFECTION, SIGNIFICANT FINDINGS, OR WHEN STRUCTURE PRESENT AND/OR ULCER LOCATED OVER BONY PROMINENCE. STATUS: CONTINUED DATE: 06/04/2024 06. OPTIMIZE HOST FACTORS: - ASSESS AND REVIEW PATIENT HISTORY FOR WOUND ETIOLOGY, CO-MORBID CONDITIONS, MEDICATION REGIME, AND SMOKING HISTORY. STATUS: CONTINUED DATE: 06/04/2024 07. DRESSING SELECTION : - EVALUATE FOR DRESSING-RELATED FACTORS, SUCH AVAILABILITY, WEAR TIME, ADAPTABILITY AND USE TO BETTER OPTIMIZE WOUND HEALING AND PATIENT COMPLIANCE. STATUS: CONTINUED DATE: 06/04/2024 - CHOOSE TOPICAL TREATMENTS AND/OR DRESSING BASED ON WOUND TYPE AND APPEARANCE, PERIWOUND SKIN CONDITION, WOUND SIZE AND DEPTH, ANATOMIC LOCATION, VOLUME OF EXUDATE, EDEMA IN THE LOWER EXTREMITIES, AND RISK OR PRESENCE OF INFECTION. STATUS: CONTINUED DATE: 06/04/2024 08. ADVANCED MODALITIES : - ORDER HOME HEALTH STATUS: COMPLETED DATE: 05/28/2024 09. FALL PREVENTION : - COMPLETE FALL ASSESSMENT. STATUS: COMPLETED DATE: 05/28/2024 10. PAIN MANAGEMENT : - COMPLETE PAIN ASSESSMENT STATUS: COMPLETED DATE: 05/28/2024 JAMISON DIXON [id number] 1955 11. MEASURABLE GOALS FOR WOUND HEALING AND/OR HYPERBARIC OXYGEN THERAPY : - LESS DRAINAGE STATUS: CONTINUED DATE: 06/04/2024 - DECREASE WOUND DIMENSIONS STATUS: CONTINUED DATE: 06/04/2024 12. DURATION/FREQUENCY OF WOUND CARE VISITS : - 1X WEEKLY FOR 30 DAYS STATUS: CONTINUED DATE: 06/04/2024 * * * * PLAN: CALLED PATIENT'S VASCULAR DOCTOR TO TRY TO GET HIM EARLIER APPT. THEY OFFERED HIM AN APPT FOR FRIDAY IN 4 DAYS BUT PATIENT DECLINED DUE TO TRANSPORTATION DIFFICULTIES DECLINES ER - STRICT ER PRECAUTIONS DISCUSSED D/T RISK OF VASCULAR COMPROMISE REMINDER TO PATIENT TO SCHEDULE XRAY RECORDS STILL PENDING CONTINUE ANTIBIOTIC RX'D PREVIOUSLY DRESSING: CONTINUE IODOSORB WITH BORDERED FOAM ELECTRONIC SIGNATURE(S) SIGNED BY: DATE: ERASMO CHAN PA-C 06/06/2024 22:39:25 (PT) ENTERED BY: ERASMO CHAN PA-C ON 06/06/2024 22:38:59 (PT) JAMISON DIXON [id number] 1955
== END ==
PROVIDERS: PCP Family Medicine; Referring Provider Family Medicine; Visit Provider Physician Assistant
DX: I70.245 Atherosclerosis of native arteries of left leg with ulceration of other part of foot (principal); I70.243 Atherosclerosis of native arteries of left leg with ulceration of ankle; L97.522 Non-pressure chronic ulcer of other part of left foot with fat layer exposed; L97.322 Non-pressure chronic ulcer of left ankle with fat layer exposed; L53.8 Other specified erythematous conditions; R60.0 Localized edema; L98.8 Other specified disorders of the skin and subcutaneous tissue
CPT/HCPCS: 97597; 97598; 99214

== ENCOUNTER 2024-06-09 03:46 | Emergency (ER) | payer OTHER, MEDICAID, SELFPAY ==
[2024-06-09] VITALS (20 sets, daily range): BP systolic 112–144; BP diastolic 56–70; PULSE 42–91; RESP 13–24; TEMP 36.4; O2SAT 83–99; BMI 33.7
--- NOTE | 2024-06-09 03:53 | DI.RAD.S_ITS ---
PROCEDURE: XR CHEST 1V INDICATIONS: sob TECHNIQUE: One view of the chest was acquired. COMPARISON: [facility], CR, XR CHEST 2V, 09/30/2021, 9:02. [facility], CT, CT ANGIO ABDOMEN PELVIS, 05/19/2024, 15:43. [facility], CT, CT CHEST WITHOUT CONTRAST, 04/05/2024, 14:41. FINDINGS AND IMPRESSION: Moderate to large left pleural effusion, underlying opacity, and left upper lobe mass, better characterized on prior CT. The pleural effusion and underlying consolidation are larger. Heart and mediastinal borders are obscured. Degenerative osseous changes. No significant changes from the preliminary report. Dictated by: Aamir Beasley M.D. on 06/09/2024 at 8:07 Approved by: Aamir Beasley M.D. on 06/09/2024 at 8:07
--- NOTE | 2024-06-09 03:54 | ED_ITS ---
HPI - SOB/Dyspnea <Melvi Quiroz DO - Last Filed: 06/09/24 18:21> General Chief Complaint: Shortness of Breath/Dyspnea Stated Complaint: SOB, swollen feet Time Seen by Provider: 06/09/24 03:53 History of Present Illness HPI Narrative: Patient is a 68-year-old male history of CHF COPD squamous cell carcinoma of the lung presenting to day with increasing shortness of breath. Reports that he has had increasing shortness of breath no significant cough feels like his chest is tight no fever or chills. His extremities hands and feet are very cold feet appear cyanotic left leg has some chronic wounds on it. Patient says extremities normally that way and not any worse today. He says that he fell yesterday did not hit his head or lose consciousness no injury really from a fall. He was currently not on any anticoagulation medication. He has caregiver at home it sounds like at least part of the time. Related Data Home Medications Medication Instructions Recorded Confirmed amitriptyline 25 mg tablet 25 mg PO DAILY 09/30/21 03/06/22 atorvastatin 20 mg tablet 20 mg PO BEDTIME 09/30/21 03/06/22 gabapentin 100 mg capsule 100 mg PO TID 09/30/21 03/06/22 ibuprofen 800 mg tablet 800 mg PO TID PRN Pain (Scale 09/30/21 03/06/22 Score 1-3) lisinopril 20 mg tablet 20 mg PO DAILY 09/30/21 03/06/22 aspirin 325 mg tablet 325 mg PO DAILY 03/06/22 03/06/22 Allergies Allergy/AdvReac Type Severity Reaction Status Date / Time No Known Drug Allergies Allergy Verified 03/06/22 14:34 Patient History <Melvi Quiroz DO - Last Filed: 06/09/24 18:21> Medical History HLD (hyperlipidemia) HTN (hypertension) COPD (chronic obstructive pulmonary disease) Surgical History S/P arterial stent Family History Father Congestive heart failure Mother CVA (cerebral vascular accident) Social History Smoking Status: Current every day smoker alcohol intake: current (occasional) substance use type: marijuana (occasional) tobacco type: cigarettes alcohol intake frequency: a few times a week Exam <Melvi Quiroz, DO - Last Filed: 06/09/24 18:21> Initial Vital Signs Initial Vital Signs: Vital Signs Pulse Rate 42 L 06/09/24 04:00 Pulse Oximetry 83 L 06/09/24 04:00 Oxygen Delivery Method Room Air 06/09/24 04:00 GENERAL: Alert year 68old male and in [no acute] distress. HEENT: Head atraumatic,EOMI, pupils reactive, face symmetric, [moist] mucous membranes CARDIOVASCULAR: Regular rate and rhythm without murmurs, rubs or gallops. RESPIRATORY: Decreased breath sounds left side no wheezing or rales ABDOMEN: Soft, nontender. Normoactive bowel sounds all 4 quadrants. No guarding or rebound. EXTREMITIES: Normal range of motion, no clubbing or edema. Neurovascularly intact Difficult to palpate bilateral lower extremity pulses. NEUROLOGICAL: Alert and oriented x4.Normal gait and speech. Cranial nerves II through XII grossly intact. SKIN: Lower extremities cool to touch toes are slightly cyanotic right leg has some chronic wounds, left leg more than right leg. Some erythema <Raffi Johnson, DO - Last Filed: 06/09/24 10:33> Initial Vital Signs Initial Vital Signs: Vital Signs Pulse Rate 42 L 06/09/24 04:00 Pulse Oximetry 83 L 06/09/24 04:00 Oxygen Delivery Method Room Air 06/09/24 04:00 Procedures <Melvi Quiroz, DO - Last Filed: 06/09/24 18:21> [facility] [place] Procedure: Thoracentesis Location: Left Technique/Description of procedure performed: Thoracentesis Indication: Large pleural effusion Consent signed A time-out was completed verifying correct patient, procedure, site, positioning, and special equipment if applicable. The patient?s left side was prepped and draped in a sterile manner after the appropriate infiltration level was confirmed by ultrasound. 1% lidocaine was used anesthetize the surrounding skin. A finder needle was then used to locate fluid and clear yellow fluid was obtained. A 18 gauge needle used to make larger hole. The thoracentesis catheter was then threaded without difficulty. The patient had 1 of clear yellow fluid removed.A post-procedure chest x-ray was ordered and the fluid will be sent for several studies. Estimated Blood Loss: 0 The patient tolerated the procedure well and there were no complications. Patient tolerated procedure: Well and No complications Additional Comments: A very small amount of fluid 1 cc Course <Melvi Quiroz DO - Last Filed: 06/09/24 18:21> Orders Ordered: Discontinued Medications Albuterol/Ipratropium (Albuterol/Ipratropium 3 Ml Ampul) 3 ml INH NOW ONE Stop: 06/09/24 03:54 Last Admin: 06/09/24 04:20 Dose: 3 ml Documented By: Piperacillin Sod/Tazobactam (Sod 4.5 gm/ Sodium Chloride) 100 mls @ 200 mls/hr IV NOW ONE Stop: 06/09/24 06:00 Last Infusion: 06/09/24 07:51 Dose: Infused Documented By: Infusion: 06/09/24 06:50 Dose: 200 mls/hr Documented By: Infusion: 06/09/24 06:33 Dose: 0 mls/hr Documented By: Admin: 06/09/24 06:31 Dose: 200 mls/hr Documented By: DAFNE Heparin Sodium/Dextrose (Heparin Drip) 25,000 unit in 500 mls @ 44.1 mls/hr IV CONT JUSTIN; Protocol Last Titration: 06/09/24 10:14 Dose: 18 units/kg/hr, 44.1 mls/hr Documented By: HAYDE Co-signed By: HAKAN Admin: 06/09/24 09:34 Dose: 18 units/kg/hr, 44.1 mls/hr Documented By: HAYDE Co-signed By: HAKAN Vital Signs Vital signs: Vital Signs - 8 hr 06/09/24 04:00 06/09/24 04:02 06/09/24 04:30 Temperature 97.6 F Pulse Rate 42 L 76 88 Respiratory Rate 21 24 Blood Pressure 112/56 L Pulse Oximetry 83 L 90 L 98 Oxygen Delivery Method Room Air Nasal Cannula Nasal Cannula Oxygen Flow Rate 2 2 06/09/24 05:00 06/09/24 05:30 06/09/24 05:38 Temperature Pulse Rate 78 74 Respiratory Rate 14 16 Blood Pressure 141/67 H Pulse Oximetry 99 96 Oxygen Delivery Method Aerosol Mask Oxygen Flow Rate 06/09/24 05:38 06/09/24 06:00 06/09/24 06:00 Temperature Pulse Rate 91 H 83 Respiratory Rate 15 16 Blood Pressure 144/66 H Pulse Oximetry 94 91 Oxygen Delivery Method Nasal Cannula Nasal Cannula Oxygen Flow Rate 2 2 06/09/24 06:42 06/09/24 06:50 06/09/24 06:50 Temperature Pulse Rate 62 86 Respiratory Rate 21 Blood Pressure 129/65 Pulse Oximetry 89 L 92 Oxygen Delivery Method Nasal Cannula Nasal Cannula Oxygen Flow Rate 2 2 06/09/24 07:00 06/09/24 07:00 06/09/24 07:30 Temperature Pulse Rate 84 73 Respiratory Rate 14 14 Blood Pressure 138/65 Pulse Oximetry 93 94 Oxygen Delivery Method Nasal Cannula Oxygen Flow Rate 2 06/09/24 07:31 06/09/24 07:31 06/09/24 08:00 Temperature Pulse Rate 79 Respiratory Rate 14 Blood Pressure 131/60 136/63 Pulse Oximetry 94 Oxygen Delivery Method Nasal Cannula Oxygen Flow Rate 2 06/09/24 08:00 06/09/24 08:15 06/09/24 08:15 Temperature Pulse Rate 88 77 Respiratory Rate 18 16 Blood Pressure 142/64 H Pulse Oximetry 94 93 Oxygen Delivery Method Nasal Cannula Oxygen Flow Rate 2 06/09/24 08:30 06/09/24 08:30 06/09/24 08:46 Temperature Pulse Rate 86 91 H Respiratory Rate 14 16 Blood Pressure 144/65 H Pulse Oximetry 94 94 Oxygen Delivery Method Oxygen Flow Rate 06/09/24 08:46 06/09/24 09:00 06/09/24 09:00 Temperature Pulse Rate 88 Respiratory Rate 13 Blood Pressure 132/61 141/63 H Pulse Oximetry 94 Oxygen Delivery Method Nasal Cannula Oxygen Flow Rate 2 06/09/24 09:15 06/09/24 09:15 06/09/24 09:30 Temperature Pulse Rate 76 86 Respiratory Rate 15 13 Blood Pressure 141/65 H Pulse Oximetry 94 94 Oxygen Delivery Method Nasal Cannula Nasal Cannula Oxygen Flow Rate 2 2 06/09/24 09:30 06/09/24 09:45 06/09/24 09:45 Temperature 97.5 F L Pulse Rate 80 Respiratory Rate 17 Blood Pressure 133/70 136/58 L Pulse Oximetry 95 Oxygen Delivery Method Nasal Cannula Oxygen Flow Rate 2 <Raffi Johnson DO - Last Filed: 06/09/24 10:33> Orders Ordered: Discontinued Medications Albuterol/Ipratropium (Albuterol/Ipratropium 3 Ml Ampul) 3 ml INH NOW ONE Stop: 06/09/24 03:54 Last Admin: 06/09/24 04:20 Dose: 3 ml Documented By: Piperacillin Sod/Tazobactam (Sod 4.5 gm/ Sodium Chloride) 100 mls @ 200 mls/hr IV NOW ONE Stop: 06/09/24 06:00 Last Infusion: 06/09/24 07:51 Dose: Infused Documented By: Infusion: 06/09/24 06:50 Dose: 200 mls/hr Documented By: Infusion: 06/09/24 06:33 Dose: 0 mls/hr Documented By: Admin: 06/09/24 06:31 Dose: 200 mls/hr Documented By: DAFNE Heparin Sodium/Dextrose (Heparin Drip) 25,000 unit in 500 mls @ 44.1 mls/hr IV CONT JUSTIN; Protocol Last Titration: 06/09/24 10:14 Dose: 18 units/kg/hr, 44.1 mls/hr Documented By: HAYDE Co-signed By: HAKAN Admin: 06/09/24 09:34 Dose: 18 units/kg/hr, 44.1 mls/hr Documented By: HAYDE Co-signed By: HAKAN Vital Signs Vital signs: Vital Signs - 8 hr 06/09/24 04:00 06/09/24 04:02 06/09/24 04:30 Temperature 97.6 F Pulse Rate 42 L 76 88 Respiratory Rate 21 24 Blood Pressure 112/56 L Pulse Oximetry 83 L 90 L 98 Oxygen Delivery Method Room Air Nasal Cannula Nasal Cannula Oxygen Flow Rate 2 2 06/09/24 05:00 06/09/24 05:30 06/09/24 05:38 Temperature Pulse Rate 78 74 Respiratory Rate 14 16 Blood Pressure 141/67 H Pulse Oximetry 99 96 Oxygen Delivery Method Aerosol Mask Oxygen Flow Rate 06/09/24 05:38 06/09/24 06:00 06/09/24 06:00 Temperature Pulse Rate 91 H 83 Respiratory Rate 15 16 Blood Pressure 144/66 H Pulse Oximetry 94 91 Oxygen Delivery Method Nasal Cannula Nasal Cannula Oxygen Flow Rate 2 2 06/09/24 06:42 06/09/24 06:50 06/09/24 06:50 Temperature Pulse Rate 62 86 Respiratory Rate 21 Blood Pressure 129/65 Pulse Oximetry 89 L 92 Oxygen Delivery Method Nasal Cannula Nasal Cannula Oxygen Flow Rate 2 2 06/09/24 07:00 06/09/24 07:00 06/09/24 07:30 Temperature Pulse Rate 84 73 Respiratory Rate 14 14 Blood Pressure 138/65 Pulse Oximetry 93 94 Oxygen Delivery Method Nasal Cannula Oxygen Flow Rate 2 06/09/24 07:31 06/09/24 07:31 06/09/24 08:00 Temperature Pulse Rate 79 Respiratory Rate 14 Blood Pressure 131/60 136/63 Pulse Oximetry 94 Oxygen Delivery Method Nasal Cannula Oxygen Flow Rate 2 06/09/24 08:00 06/09/24 08:15 06/09/24 08:15 Temperature Pulse Rate 88 77 Respiratory Rate 18 16 Blood Pressure 142/64 H Pulse Oximetry 94 93 Oxygen Delivery Method Nasal Cannula Oxygen Flow Rate 2 06/09/24 08:30 06/09/24 08:30 06/09/24 08:46 Temperature Pulse Rate 86 91 H Respiratory Rate 14 16 Blood Pressure 144/65 H Pulse Oximetry 94 94 Oxygen Delivery Method Oxygen Flow Rate 06/09/24 08:46 06/09/24 09:00 06/09/24 09:00 Temperature Pulse Rate 88 Respiratory Rate 13 Blood Pressure 132/61 141/63 H Pulse Oximetry 94 Oxygen Delivery Method Nasal Cannula Oxygen Flow Rate 2 06/09/24 09:15 06/09/24 09:15 06/09/24 09:30 Temperature Pulse Rate 76 86 Respiratory Rate 15 13 Blood Pressure 141/65 H Pulse Oximetry 94 94 Oxygen Delivery Method Nasal Cannula Nasal Cannula Oxygen Flow Rate 2 2 06/09/24 09:30 06/09/24 09:45 06/09/24 09:45 Temperature 97.5 F L Pulse Rate 80 Respiratory Rate 17 Blood Pressure 133/70 136/58 L Pulse Oximetry 95 Oxygen Delivery Method Nasal Cannula Oxygen Flow Rate 2 MDM - SOB/Dyspnea <Melvi Quiroz, DO - Last Filed: 06/09/24 18:21> Lab Data 06/09/24 04:05 06/09/24 04:05 Labs: Lab Results 06/09/24 06/09/24 06/09/24 Range/Units 04:05 04:15 05:55 WBC 7.0 (4.5-11.0) X10^3/uL RBC 5.46 (4.5-5.9) X10^6/uL Hgb 16.0 (13.5-17.5) g/dL Hct 50.3 (41-53) % MCV 92.1 (80-100) fL MCH 29.4 (26-34) PG MCHC 31.9 (30-36) % RDW 17.9 H (11.6-14.8) % Plt Count 65 L (150-400) X10^3/uL Neut % (Auto) 77.3 H (50-75) % Lymph % (Auto) 9.8 L (25-40) % [place] % (Auto) 12.3 (3-14) % Eos % (Auto) 0.2 L (2-4) % Baso % (Auto) 0.4 (0-2) % Neut # (Auto) 5400 (4012-5568) /uL Lymph # (Auto) 700 L (3404-6731) /uL [place] # (Auto) 900 (0-900) /uL Eos # (Auto) 0 (0-450) /uL Baso # (Auto) 0 (0-100) /uL Platelet Estimate Decreased on smear RBC Morphology See below Anisocytosis 1+ H PT 16.3 H (9.4-12.5) SECONDS INR 1.5 H (0.9-1.3) APTT 46 H (25.1-36.5) SECONDS Sodium 138 (137-145) mmol/L Potassium 3.9 (3.4-5.1) mmol/L Chloride 98 (98-107) mmol/L Carbon Dioxide 29 (22-32) mmol/L BUN 44 H (9-20) mg/dL Creatinine 2.15 H (0.66-1.25) mg/dL Estimated GFR 32 L (>60) mL/min BUN/Creatinine Ratio 20.5 (6-22) Glucose 86 (80-110) mg/dL Lactate 1.7 (0.7-2.1) mmol/L Calcium 8.7 (8.4-10.2) mg/dL Total Bilirubin 1.0 (0.2-1.3) mg/dL AST 39 (17-59) IU/L ALT 23 (<50) IU/L Alkaline Phosphatase 100 (38-126) U/L Total Creatine Kinase 63 (55-170) U/L Troponin I 0.146 H* (0.01-0.034) ng/mL NT-Pro-B Natriuret Pep 22301 H (<125) pg/mL Total Protein 7.4 (6.3-8.2) g/dL Albumin 3.8 (3.5-5.0) g/dL Globulin 3.6 (1.7-4.1) g/dL Albumin/Globulin Ratio 1.1 (1.0-2.8) Procalcitonin 0.082 (<0.5) ng/mL Urine Color Urine Appearance Urine pH (4.5-8.0) Ur Specific [place] (1.000-1.035) Urine Protein (Negative) Urine Glucose (UA) (Negative) g/dL Urine Ketones (NEGATIVE) Urine Occult Blood (Negative) Urine Nitrate (Negative) Urine Bilirubin (NEGATIVE) Ur Bilirubin Confirm (Negative) Urine Urobilinogen (0.2) E.U./dL Ur Leukocyte Esterase (NEGATIVE) Urine RBC (0-5/HPF) Urine WBC (0-5/HPF) Ur Squamous Epith Cells (0-5/HPF) Urine Bacteria (None) Hyaline Casts (None) Ur Culture Indicated? Vol Urine Centrifuged Fluid Color [place] Fluid Appearance Cloudy [place] 42043 /uL Fld Tot Nucleated Cell 1592 /uL Fluid Neutrophils % 20 % Fluid Lymphocytes % 37 % Fluid [place]ro/[place] % 43 % Body Fluid Clot No clots present SARS-CoV-2 (PCR) Negative (Negative) Influenza A (RT-PCR) Flu a negative (NEGATIVE) Influenza B (RT-PCR) Flu b negative (NEGATIVE) RSV (PCR) Negative (Negative) 06/09/24 06/09/24 Range/Units 07:19 08:11 WBC (4.5-11.0) X10^3/uL RBC (4.5-5.9) X10^6/uL Hgb (13.5-17.5) g/dL Hct (41-53) % MCV (80-100) fL MCH (26-34) PG MCHC (30-36) % RDW (11.6-14.8) % Plt Count (150-400) X10^3/uL Neut % (Auto) (50-75) % Lymph % (Auto) (25-40) % [place] % (Auto) (3-14) % Eos % (Auto) (2-4) % Baso % (Auto) (0-2) % Neut # (Auto) (7726-1376) /uL Lymph # (Auto) (1793-2932) /uL [place] # (Auto) (0-900) /uL Eos # (Auto) (0-450) /uL Baso # (Auto) (0-100) /uL Platelet Estimate RBC Morphology Anisocytosis PT (9.4-12.5) SECONDS INR (0.9-1.3) APTT (25.1-36.5) SECONDS Sodium (137-145) mmol/L Potassium (3.4-5.1) mmol/L Chloride (98-107) mmol/L Carbon Dioxide (22-32) mmol/L BUN (9-20) mg/dL Creatinine (0.66-1.25) mg/dL Estimated GFR (>60) mL/min BUN/Creatinine Ratio (6-22) Glucose (80-110) mg/dL Lactate (0.7-2.1) mmol/L Calcium (8.4-10.2) mg/dL Total Bilirubin (0.2-1.3) mg/dL AST (17-59) IU/L ALT (<50) IU/L Alkaline Phosphatase (38-126) U/L Total Creatine Kinase (55-170) U/L Troponin I 0.115 H (0.01-0.034) ng/mL NT-Pro-B Natriuret Pep (<125) pg/mL Total Protein (6.3-8.2) g/dL Albumin (3.5-5.0) g/dL Globulin (1.7-4.1) g/dL Albumin/Globulin Ratio (1.0-2.8) Procalcitonin (<0.5) ng/mL Urine Color [place] Urine Appearance Clear Urine pH 5.5 (4.5-8.0) Ur Specific [place] >=1.030 H (1.000-1.035) Urine Protein 1+ H (Negative) Urine Glucose (UA) Negative (Negative) g/dL Urine Ketones Negative (NEGATIVE) Urine Occult Blood Negative (Negative) Urine Nitrate Negative (Negative) Urine Bilirubin 1+ H (NEGATIVE) Ur Bilirubin Confirm Negative (Negative) Urine Urobilinogen 1.0 (0.2) E.U./dL Ur Leukocyte Esterase Negative (NEGATIVE) Urine RBC None seen (0-5/HPF) Urine WBC None seen (0-5/HPF) Ur Squamous Epith Cells 0-1 /hpf (0-5/HPF) Urine Bacteria None seen (None) Hyaline Casts 5-10/lpf (None) Ur Culture Indicated? Cult not indicated Vol Urine Centrifuged 10ml (spun) Fluid Color Fluid Appearance Fluid RBC /uL Fld Tot Nucleated Cell /uL Fluid Neutrophils % % Fluid Lymphocytes % % Fluid [place]/Macro/[place] % % Body Fluid Clot SARS-CoV-2 (PCR) (Negative) Influenza A (RT-PCR) (NEGATIVE) Influenza B (RT-PCR) (NEGATIVE) RSV (PCR) (Negative) Imaging Data Chest x-ray: Radiologist's Impression: Preliminary report left pleural effusion and left lower lobe infiltrate follow up chest radiograph ECG Data Attestation: I personally reviewed and interpreted this ECG as follows: Prior ECG tracings: not available for review Interpretation: Sinus rhythm rate 73 WA interval 2 2 QRS 112 QTC 434 PVC noted low voltage MDM Narrative Medical decision making narrative: MDM CC: Shortness of breath Complicating co-morbidities: Prior squamous cell carcinoma, CHF COPD chronic wound Data collected from: EMS and patient Medical records reviewed: Previous visit oncology from 04/03/2022 who is only admitted to the hospital once in 2021 very few records. 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 Chronic wounds on legs. Decreased breath sounds left greater than right some peripheral edema as well. Lab Test results independently reviewed as above. Pertinent findings: WBC 7.0 hemoglobin 16 hematocrit 50.3 platelets 65 INR 1.5 PTT 46 Sodium 130 potassium 3.9 chloride 98 carbon dioxide 29 BUN 44 creatinine 2.15 previously 0.48 in 2021 Troponin 0.146, BNP 98587 Procalcitonin 0.082, lactate 1.7 Independently reviewed EKG as above Low voltage sinus arrhythmia Imaging studies independently reviewed: Chest x-ray left pleural effusion in the left lower lobe infiltrate Consultations: [ ] Treatments: Zosyn Re-evaluations: Attempted thoracentesis on the left side however only got a very small amount of fluid 1 cc it was sent for analysis Discussion: Patient 68-year-old male presenting to day with increasing shortness of breath requiring oxygen which he has not previously. Chest x-ray did show a large left pleural effusion however unsuccessful procedure swallow out sent to lab. He was found to have elevated troponin in a and BNP. It maybe due to demand ischemia. Patient was empirically treated with antibiotics for sepsis cellulitis. However he has a normal lactate and normal leukocytosis. Awaiting CT results to start heparin for PE versus NSTEMI P troponin pending Signed out to <Raffi Johnson, DO - Last Filed: 06/09/24 10:33> Lab Data Labs: Lab Results 06/09/24 06/09/24 06/09/24 Range/Units 04:05 04:15 05:55 WBC 7.0 (4.5-11.0) X10^3/uL RBC 5.46 (4.5-5.9) X10^6/uL Hgb 16.0 (13.5-17.5) g/dL Hct 50.3 (41-53) % MCV 92.1 (80-100) fL MCH 29.4 (26-34) PG MCHC 31.9 (30-36) % RDW 17.9 H (11.6-14.8) % Plt Count 65 L (150-400) X10^3/uL Neut % (Auto) 77.3 H (50-75) % Lymph % (Auto) 9.8 L (25-40) % [place] % (Auto) 12.3 (3-14) % Eos % (Auto) 0.2 L (2-4) % Baso % (Auto) 0.4 (0-2) % Neut # (Auto) 5400 (4712-0896) /uL Lymph # (Auto) 700 L (2395-4211) /uL [place] # (Auto) 900 (0-900) /uL Eos # (Auto) 0 (0-450) /uL Baso # (Auto) 0 (0-100) /uL Platelet Estimate Decreased on smear RBC Morphology See below Anisocytosis 1+ H PT 16.3 H (9.4-12.5) SECONDS INR 1.5 H (0.9-1.3) APTT 46 H (25.1-36.5) SECONDS Sodium 138 (137-145) mmol/L Potassium 3.9 (3.4-5.1) mmol/L Chloride 98 (98-107) mmol/L Carbon Dioxide 29 (22-32) mmol/L BUN 44 H (9-20) mg/dL Creatinine 2.15 H (0.66-1.25) mg/dL Estimated GFR 32 L (>60) mL/min BUN/Creatinine Ratio 20.5 (6-22) Glucose 86 (80-110) mg/dL Lactate 1.7 (0.7-2.1) mmol/L Calcium 8.7 (8.4-10.2) mg/dL Total Bilirubin 1.0 (0.2-1.3) mg/dL AST 39 (17-59) IU/L ALT 23 (<50) IU/L Alkaline Phosphatase 100 (38-126) U/L Total Creatine Kinase 63 (55-170) U/L Troponin I 0.146 H* (0.01-0.034) ng/mL NT-Pro-B Natriuret Pep 55776 H (<125) pg/mL Total Protein 7.4 (6.3-8.2) g/dL Albumin 3.8 (3.5-5.0) g/dL Globulin 3.6 (1.7-4.1) g/dL Albumin/Globulin Ratio 1.1 (1.0-2.8) Procalcitonin 0.082 (<0.5) ng/mL Urine Color Urine Appearance Urine pH (4.5-8.0) Ur Specific [place] (1.000-1.035) Urine Protein (Negative) Urine Glucose (UA) (Negative) g/dL Urine Ketones (NEGATIVE) Urine Occult Blood (Negative) Urine Nitrate (Negative) Urine Bilirubin (NEGATIVE) Ur Bilirubin Confirm (Negative) Urine Urobilinogen (0.2) E.U./dL Ur Leukocyte Esterase (NEGATIVE) Urine RBC (0-5/HPF) Urine WBC (0-5/HPF) Ur Squamous Epith Cells (0-5/HPF) Urine Bacteria (None) Hyaline Casts (None) Ur Culture Indicated? Vol Urine Centrifuged Fluid Color [place] Fluid Appearance Cloud[place] 92865 /uL Fld Tot Nucleated Cell 1592 /uL Fluid Neutrophils % 20 % Fluid Lymphocytes % 37 % Fluid [place] % 43 % Body Fluid Clot No clots present SARS-CoV-2 (PCR) Negative (Negative) Influenza A (RT-PCR) Flu a negative (NEGATIVE) Influenza B (RT-PCR) Flu b negative (NEGATIVE) RSV (PCR) Negative (Negative) 06/09/24 06/09/24 Range/Units 07:19 08:11 WBC (4.5-11.0) X10^3/uL RBC (4.5-5.9) X10^6/uL Hgb (13.5-17.5) g/dL Hct (41-53) % MCV (80-100) fL MCH (26-34) PG MCHC (30-36) % RDW (11.6-14.8) % Plt Count (150-400) X10^3/uL Neut % (Auto) (50-75) % Lymph % (Auto) (25-40) % [place] % (Auto) (3-14) % Eos % (Auto) (2-4) % Baso % (Auto) (0-2) % Neut # (Auto) (9645-3719) /uL Lymph # (Auto) (6166-1966) /uL [place] # (Auto) (0-900) /uL Eos # (Auto) (0-450) /uL Baso # (Auto) (0-100) /uL Platelet Estimate RBC Morphology Anisocytosis PT (9.4-12.5) SECONDS INR (0.9-1.3) APTT (25.1-36.5) SECONDS Sodium (137-145) mmol/L Potassium (3.4-5.1) mmol/L Chloride (98-107) mmol/L Carbon Dioxide (22-32) mmol/L BUN (9-20) mg/dL Creatinine (0.66-1.25) mg/dL Estimated GFR (>60) mL/min BUN/Creatinine Ratio (6-22) Glucose (80-110) mg/dL Lactate (0.7-2.1) mmol/L Calcium (8.4-10.2) mg/dL Total Bilirubin (0.2-1.3) mg/dL AST (17-59) IU/L ALT (<50) IU/L Alkaline Phosphatase (38-126) U/L Total Creatine Kinase (55-170) U/L Troponin I 0.115 H (0.01-0.034) ng/mL NT-Pro-B Natriuret Pep (<125) pg/mL Total Protein (6.3-8.2) g/dL Albumin (3.5-5.0) g/dL Globulin (1.7-4.1) g/dL Albumin/Globulin Ratio (1.0-2.8) Procalcitonin (<0.5) ng/mL Urine Color [place] Urine Appearance Clear Urine pH 5.5 (4.5-8.0) Ur Specific [place] >=1.030 H (1.000-1.035) Urine Protein 1+ H (Negative) Urine Glucose (UA) Negative (Negative) g/dL Urine Ketones Negative (NEGATIVE) Urine Occult Blood Negative (Negative) Urine Nitrate Negative (Negative) Urine Bilirubin 1+ H (NEGATIVE) Ur Bilirubin Confirm Negative (Negative) Urine Urobilinogen 1.0 (0.2) E.U./dL Ur Leukocyte Esterase Negative (NEGATIVE) Urine RBC None seen (0-5/HPF) Urine WBC None seen (0-5/HPF) Ur Squamous Epith Cells 0-1 /hpf (0-5/HPF) Urine Bacteria None seen (None) Hyaline Casts 5-10/lpf (None) Ur Culture Indicated? Cult not indicated Vol Urine Centrifuged 10ml (spun) Fluid Color Fluid Appearance Fluid RBC /uL Fld Tot Nucleated Cell /uL Fluid Neutrophils % % Fluid Lymphocytes % % Fluid [place] % % Body Fluid Clot SARS-CoV-2 (PCR) (Negative) Influenza A (RT-PCR) (NEGATIVE) Influenza B (RT-PCR) (NEGATIVE) RSV (PCR) (Negative) Imaging Data Chest x-ray: Radiologist's Impression: Preliminary report left pleural effusion and left lower lobe infiltrate follow up chest radiograph Official Read as follows: [address] [address] XRay Report Signed Patient: Ron Goss MR#: [id number] : 1955 Acct:[id number] Age/Sex: 68 / M Date of Service: 06/09/24 Loc: ED Accession Number: [id number] Procedure: XR chest 1V Ordering Provider: Melvi Quiroz D.O. PROCEDURE: XR CHEST 1V INDICATIONS: sob TECHNIQUE: One view of the chest was acquired. COMPARISON: [facility], CR, XR CHEST 2V, 09/30/2021, 9:02. [facility], CT, CT ANGIO ABDOMEN PELVIS, 05/19/2024, 15:43. [facility], CT, CT CHEST WITHOUT CONTRAST, 04/05/2024, 14:41. FINDINGS AND IMPRESSION: Moderate to large left pleural effusion, underlying opacity, and left upper lobe mass, better characterized on prior CT. The pleural effusion and underlying consolidation are larger. Heart and mediastinal borders are obscured. Degenerative osseous changes. No significant changes from the preliminary report. 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 PROCEDURE: CT ANGIO CHEST ABDOMEN PELVIS INDICATIONS: hypoxia cancer cyanosis TECHNIQUE: Precontrast 5 mm thick sections acquired from the lung apices to the iliac crests. After the administration of intravenous contrast, 2.5 mm thick sections again acquired from the lung apices to the iliac crests. Maximum intensity projection (MIP) oblique sagittal and coronal reformats were then acquired. For radiation dose reduction, the following was used: automated exposure control. COMPARISON: [facility], [place], PET NECK TO MID THIGH, 05/19/2024, 14:00. [facility], CT, CT ANGIO ABDOMEN PELVIS, 05/19/2024, 15:43. FINDINGS: Image quality: Diagnostic Lungs and pleura: Moderate to large left pleural effusion. Left upper lobe mass again seen, proximally 2.8 cm on today's study. There are scattered areas of atelectasis. Trace right pleural effusion also present. Multifocal airspace disease and mild septal thickening also present Mediastinum, heart, and esophagus: Cardiomegaly and coronary calcifications. Distended main pulmonary artery. Ectatic ascending aorta of 4.6 cm. No pathologic lymph nodes by size criteria. Moderate atherosclerotic disease of the aorta and its branches. No aortic dissection Chest wall and thyroid: Diffuse anasarca Liver: Unremarkable, not well evaluated on this arterial phase study Gallbladder and biliary system: Unremarkable, nondilated Pancreas: No ductal dilation Spleen: Nonenlarged Adrenals: Bilateral thickening Kidneys: No solid mass or hydronephrosis. Vessels and lymph nodes: Moderate to severe atherosclerotic disease of the aorta and its branches. 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 Occluded right common iliac, external iliac vessels, with reconstitution at the superficial femoral artery. No definite enlarged lymph nodes by size criteria on this arterial phase study Bowel and peritoneum: Small diffuse ascites.. No small bowel obstruction. Colonic diverticula. Body wall: [id number] anasarca diffusely. Pelvis: Bladder is unremarkable. Prostate is not well assessed on this study Bones: No aggressive appearing osseous abnormality/changes. Diffuse degenerative findings are present. IMPRESSION: Moderate to large left pleural effusion. Trace right pleural effusion. Left upper lobe mass, better assessed on prior PET-CT. Multifocal other areas of airspace opacities and atelectasis with septal thickening, likely edema and/or infection. Atherosclerotic disease as described above, more severe in the abdomen and pelvis, with occlusion of the right iliac vessels as before. No acute aortic dissection. Other stable and nonacute findings above. No significant changes from the preliminary report. Recommend dedicated future oncologic surveillance imaging, as these findings are not well assessed on this arterial phase CT. Chest US: Radiologist's Impression: [address] [address] Ultrasound Report Signed Patient: Ron Goss MR#: [id number] : 1955 Acct:[id number] Age/Sex: 68 / M Date of Service: 06/09/24 Loc: ED Accession Number: [id number] Procedure: US chest Ordering Provider: Melvi Quiroz D.O. PROCEDURE:US CHEST COMPARISON:None. INDICATIONS:GERTRUDE FOR THORA FINDINGS AND IMPRESSION: Large left pleural effusion marked for thoracentesis. MDM Narrative Medical decision making narrative: MDM CC: Shortness of breath Complicating co-morbidities: Prior squamous cell carcinoma, CHF COPD chronic wound Data collected from: EMS and patient Medical records reviewed: Previous visit oncology from 04/03/2022 who is only admitted to the hospital once in 2021 very few records. 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 Chronic wounds on legs. Decreased breath sounds left greater than right some peripheral edema as well. Lab Test results independently reviewed as above. Pertinent findings: WBC 7.0 hemoglobin 16 hematocrit 50.3 platelets 65 INR 1.5 PTT 46 Sodium 130 potassium 3.9 chloride 98 carbon dioxide 29 BUN 44 creatinine 2.15 previously 0.48 in 2021 Troponin 0.146, BNP 98379 Procalcitonin 0.082, lactate 1.7 Independently reviewed EKG as above Low voltage sinus arrhythmia Imaging studies independently reviewed: Chest x-ray left pleural effusion in the left lower lobe infiltrate Consultations: [ ] Treatments: Zosyn Re-evaluations: Attempted thoracentesis on the left side however only got a very small amount of fluid 1 cc it was sent for analysis Discussion: Patient 68-year-old male presenting to day with increasing shortness of breath requiring oxygen which he has not previously. Chest x-ray did show a large left pleural effusion however unsuccessful procedure swallow out sent to lab. He was found to have elevated troponin in a and BNP. It maybe due to demand ischemia. Patient was empirically treated with antibiotics for sepsis cellulitis. However he has a normal lactate and normal leukocytosis. Awaiting CT results to start heparin for PE versus NSTEMI P troponin pending Signed out to Dr.Balyuot Dr. Johnson 0700: Patient was signed out to me by Dr. Quiroz, patient is a 68-year-old male who is presenting for increased shortness of breath, found to be hypoxic at 83 on room air, currently on 2 L nasal cannula, patient was also complaining of lower extremity swelling ongoing for ?awhile. Patient found to have LAURA, elevated BNP, elevated troponin, new left-sided pleural effusion, patient has already received Zosyn, thoracentesis was performed by previous provider only aspirated a proximally 1 cc which was sent for analysis, patient pending repeat troponin CT angio chest abdomen and pelvis, as well as administration of heparin for PE versus NSTEMI. Final disposition pending CT scan and re-evaluation most likely admission versus transfer. 0720: Patient was evaluated by me, unable to palpate lower extremity pulses, patient agreeable to transfer, given CTA showing occlusion of the right common iliac and external iliac arteries will require transfer to higher level care, given patient with recent thoracentesis we will await further recommendations by vascular surgery to initiate heparin. 0800: Repeat troponin downtrending, initial 0.146, now 0.115, most likely elevated secondary to type 2 spilled demand ischemia 0821: Discussed case with transfer center, we will await call back by vascular surgery 0913: Received call back from transfer center, patient has been accepted to the ER at [facility], Chris Wooten (vascular surgery accepts), is recommending a initiate heparin drip Patient was evaluated prior to flight crew transporting the patient, vital signs stable, safe for transport to [facility] ER Critical Care Time <Melvi Quiroz DO - Last Filed: 06/09/24 18:21> Critical Care Time Critical Care Time: Yes Total Critical Care Time: 35 Attestation: The high probability of a clinically significant, sudden or life threatening deterioration of the [cardiovascular] system(s) required my full and direct attention, intervention and personal management. The aggregate critical care time was 35 minutes. This time is in addition to time spent performing reported procedures but includes the following: [x] Data Review and interpretation [x] Patient assessment and monitoring of vital signs [x] Documentation [x] Medication orders and management Discharge Plan Departure Patient Disposition: [facility] Clinical Impression: Acute respiratory failure, LAURA (acute kidney injury), Pleural effusion, External iliac artery occlusion, Iliac artery occlusion Prescriptions: No Action atorvastatin 20 mg tablet 20 mg PO BEDTIME ibuprofen 800 mg tablet 800 mg PO TID PRN (Reason: Pain (Scale Score 1-3)) lisinopril 20 mg tablet 20 mg PO DAILY amitriptyline 25 mg tablet 25 mg PO DAILY gabapentin 100 mg capsule 100 mg PO TID aspirin 325 mg Tablet 325 mg PO DAILY Referrals: Raffi Willard MD [Primary Care Provider] -
--- NOTE | 2024-06-09 04:03 | EKG_ITS ---
[place] [id number] [place] [id number] Test Date: 2024-06-09 Pat Name: Ron Goss Department: [facility] Room: Gender: Male Med Asst: : 1955 Requested By: Order Number: [id number] Reading MD: Andrew Samuels MD Measurements Intervals [place] Rate: 73 P: 64 PA: 202 QRS: 166 QRSD: 112 T: 257 QT: 394 QTc: 434 Interpretive Statements Sinus rhythm with sinus arrhythmia with occasional premature ventricular complexes Possible Left atrial enlargement Low voltage QRS Septal infarct , age undetermined Lateral infarct , age undetermined Electronically Signed On 06-09-2024 7:40:27 PDT by Andrew Samuels MD
[2024-06-09 04:18] LABS: Basophils Absolute Auto 0 /uL (0-100); Basophils Percent Auto 0.4 % (0-2); Eosinophils Absolute Auto 0 /uL (0-450); Eosinophils Percent Auto 0.2 % (2-4); Hematocrit 50.3 % (41-53); Lymphocytes Absolute Auto 700 /uL (1100-4500); Lymphocytes Percent Auto 9.8 % (25-40); Mean Corpuscular HGB Conc 31.9 % (30-36); Mean Corpuscular Hemoglobin 29.4 PG (26-34); Mean Corpuscular Volume 92.1 fL (80-100); Monocytes Absolute Auto 900 /uL (0-900); Monocytes Percent Auto 12.3 % (3-14); Neutrophils Absolute Auto 5400 /uL (1500-7000); Neutrophils Percent Auto 77.3 % (50-75); Platelet Count 65 X10^3/uL (150-400); Red Blood Cell Count 5.46 X10^6/uL (4.5-5.9); Red Cell Distribution Width 17.9 % (11.6-14.8)
[2024-06-09] MEDS: ALBUTEROL/IPRATROPIUM 3 ML AMPUL INH (04:20)
[2024-06-09 04:21] LABS: Add Manual Diff / Slide Review SLIDE REVIEW
[2024-06-09 04:26] LABS: INR 1.5 (0.9-1.3); Prothrombin Time 16.3 SECONDS (9.4-12.5)
[2024-06-09 04:31] LABS: Alanine Aminotransferase 23 IU/L (<50); Albumin 3.8 g/dL (3.5-5.0); Albumin Globulin Ratio 1.1 (1.0-2.8); Alkaline Phosphatase 100 U/L (38-126); Aspartate Aminotransferase 39 IU/L (17-59); BUN Creatinine Ratio 20.5 (6-22); Blood Urea Nitrogen 44 mg/dL (9-20); Calcium 8.7 mg/dL (8.4-10.2); Carbon Dioxide 29 mmol/L (22-32); Chloride 98 mmol/L (98-107); Creatine Kinase 63 U/L (55-170); Estimated Glomerular Filt Rate 32 mL/min (>60); Globulin 3.6 g/dL (1.7-4.1); Glucose 86 mg/dL (80-110); HEMOLYSIS < 15 (0-50); Lactate (Lactic Acid) 1.7 mmol/L (0.7-2.1); Potassium 3.9 mmol/L (3.4-5.1); Sodium 138 mmol/L (137-145); Total Protein 7.4 g/dL (6.3-8.2)
[2024-06-09 04:35] LABS: PTT Partial Thromboplastin Tim 46 SECONDS (25.1-36.5)
[2024-06-09 04:42] LABS: Platelet Estimate Decreased on smear
[2024-06-09 04:43] LABS: Anisocytosis 1+; NT-proBNP (BNP-Adult 18+) 13000 pg/mL (<125)
[2024-06-09 04:48] LABS: Procalcitonin 0.082 ng/mL (<0.5)
[2024-06-09 04:50] LABS: Troponin I 0.146 ng/mL (0.01-0.034)
--- NOTE | 2024-06-09 05:05 | DI.US.S_ITS ---
PROCEDURE: US CHEST COMPARISON: None. INDICATIONS: GERTRUDE FOR THORA FINDINGS AND IMPRESSION: Large left pleural effusion marked for thoracentesis. Dictated by: Aamir Beasley M.D. on 06/09/2024 at 8:08 Approved by: Aamir Beasley M.D. on 06/09/2024 at 8:08
[2024-06-09 05:14] LABS: Influenza A - CEPHEID Flu A NEGATIVE (NEGATIVE); Influenza B - CEPHEID Flu B NEGATIVE (NEGATIVE); Respiratory Syncytial Virus Negative (Negative)
[2024-06-09 05:16] LABS: COVID-19 CEPHEID 4-PLEX PCR Negative (Negative)
--- NOTE | 2024-06-09 06:12 | DI.CT.S_ITS ---
PROCEDURE: CT ANGIO CHEST ABDOMEN PELVIS INDICATIONS: hypoxia cancer cyanosis TECHNIQUE: Precontrast 5 mm thick sections acquired from the lung apices to the iliac crests. After the administration of intravenous contrast, 2.5 mm thick sections again acquired from the lung apices to the iliac crests. Maximum intensity projection (MIP) oblique sagittal and coronal reformats were then acquired. For radiation dose reduction, the following was used: automated exposure control. COMPARISON: [facility], [place], PET NECK TO MID THIGH, 05/19/2024, 14:00. [facility], CT, CT ANGIO ABDOMEN PELVIS, 05/19/2024, 15:43. FINDINGS: Image quality: Diagnostic Lungs and pleura: Moderate to large left pleural effusion. Left upper lobe mass again seen, proximally 2.8 cm on today's study. There are scattered areas of atelectasis. Trace right pleural effusion also present. Multifocal airspace disease and mild septal thickening also present Mediastinum, heart, and esophagus: Cardiomegaly and coronary calcifications. Distended main pulmonary artery. Ectatic ascending aorta of 4.6 cm. No pathologic lymph nodes by size criteria. Moderate atherosclerotic disease of the aorta and its branches. No aortic dissection Chest wall and thyroid: Diffuse anasarca Liver: Unremarkable, not well evaluated on this arterial phase study Gallbladder and biliary system: Unremarkable, nondilated Pancreas: No ductal dilation Spleen: Nonenlarged Adrenals: Bilateral thickening Kidneys: No solid mass or hydronephrosis. Vessels and lymph nodes: Moderate to severe atherosclerotic disease of the aorta and its branches. 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 Occluded right common iliac, external iliac vessels, with reconstitution at the superficial femoral artery. No definite enlarged lymph nodes by size criteria on this arterial phase study Bowel and peritoneum: Small diffuse ascites.. No small bowel obstruction. Colonic diverticula. Body wall: [id number]-[id number] anasarca diffusely. Pelvis: Bladder is unremarkable. Prostate is not well assessed on this study Bones: No aggressive appearing osseous abnormality/changes. Diffuse degenerative findings are present. IMPRESSION: Moderate to large left pleural effusion. Trace right pleural effusion. Left upper lobe mass, better assessed on prior PET-CT. Multifocal other areas of airspace opacities and atelectasis with septal thickening, likely edema and/or infection. Atherosclerotic disease as described above, more severe in the abdomen and pelvis, with occlusion of the right iliac vessels as before. No acute aortic dissection. Other stable and nonacute findings above. No significant changes from the preliminary report. Recommend dedicated future oncologic surveillance imaging, as these findings are not well assessed on this arterial phase CT. Dictated by: Aamir Beasley M.D. on 06/09/2024 at 8:08 Approved by: Aamir Beasley M.D. on 06/09/2024 at 8:17
[2024-06-09] MEDS: PIPERACILLIN/TAZO 4.5 GM in SODIUM CHLORIDE 0.9% 100 ML IV (06:31)
[2024-06-09 06:41] LABS: Body Fluid Red Blood Cells 64431 /uL; Body Fluid Tot Nucleated Cells 1592 /uL
[2024-06-09 06:42] LABS: Body Fluid Appearance CLOUDY; Body Fluid Clotted? NO CLOTS PRESENT; Body Fluid Color PINK
[2024-06-09 06:50] LABS: Lymphocytes Body Fluid 37 %; MESO/MACRO/MONO Body Fluid 43 %; Neutrophils Body Fluid 20 %
--- NOTE | 2024-06-09 06:58 | PC.NURSE ---
PT with purple feet. has 3 second cap refill. Pedal pulses couldn't be found with doppler.
[2024-06-09 07:51] LABS: Troponin I 0.115 ng/mL (0.01-0.034)
--- NOTE | 2024-06-09 08:19 | PC.NURSE ---
This RN asked patient to attempt to void. Patient attempted to void in a urinal but was unable. This RN performed a bladder scan and it stated 807. This RN informed provider and provider ordered cathether placement.
[2024-06-09 08:21] LABS: Appearance Urine UA CLEAR; Bilirubin Urine UA 1+ (NEGATIVE); Color Urine UA ORANGE; Glucose Urine UA NEGATIVE (Negative); Ketones Urine UA NEGATIVE (NEGATIVE); Leukocyte Esterase Urine UA NEGATIVE (NEGATIVE); Nitrite Urine UA NEGATIVE (Negative); Occult Blood Urine UA NEGATIVE (Negative); Protein Urine UA 1+ (Negative); Specific Gravity Urine UA >=1.030 (1.000-1.035); pH Urine UA 5.5 (4.5-8.0)
[2024-06-09 08:29] LABS: Bacteria Urine None Seen; Culture Indicated Urine Cult Not Indicated; Hyaline Casts Urine 5-10/LPF; Ictotest Urine Negative (Negative); RBC Urine None Seen (0-5/HPF); Squamous Epithelial Cell Urine 0-1 /HPF (0-5/HPF); Urine Volume 10mL (spun); WBC Urine None Seen (0-5/HPF)
--- NOTE | 2024-06-09 09:03 | PC.NURSE ---
Patient bilateral below the knee is pink and gradually gets darker red and then purplish in feet. Pulse unable to be palpated by this RN or by provider bilaterally. Pulses unable to be found with doppler provider aware and unable to find either. Patient does remain to have a 3 second cap refill. Patient is resting with eyes closed with chest rise and fall noted. Patient was alert and orientated upon this RN original assessment.
[2024-06-09] MEDS: HEPARIN DRIP 25,000 UNIT/500 ML IV.SOLN 44.1 UNIT IV (09:34)
--- NOTE | 2024-06-09 10:11 | PC.NURSE ---
Addendum entered by Luis Rosado R.N. 06/09/24 10:15: Crew was from [facility] live flight. Patient departed wrapped up and secured to stretcher. Original Note: Patient report was given to JEFF Jenkins from live flight. Patient left with Heprin running at 18u/kg/hr.
== END 2024-06-09 10:16 | disposition short-term general hospital (02) ==
PROVIDERS: Emergency Medicine; Emergency Provider Student in an Organized Health Care Education/Training Program; PCP Family Medicine
DX: J96.01 Acute respiratory failure with hypoxia (principal); N17.9 Acute kidney failure, unspecified; J90 Pleural effusion, not elsewhere classified; I74.5 Embolism and thrombosis of iliac artery; J44.9 Chronic obstructive pulmonary disease, unspecified; C34.90 Malignant neoplasm of unspecified part of unspecified bronchus or lung
CPT/HCPCS: 0241U; 32555; 36415; 51798; 71045; 71275; 74174; 76604; 80053; 81001; 82550; 83605; 83880; 84145; 84484; 85025; 85610; 85730; 87040; 87070; 87075; 87205; 89051; 93005; 94640; 96365; 96367; 99285; 99291; J1644; J2543; Q9967